=== PATIENT | male | born 1940 | race Caucasian/White ===

== ENCOUNTER 2020-06-24 18:34 | Emergency (ER) | payer OTHER ==
--- OUTSIDE RECORDS SUMMARY | 2020-06-24 18:37 | XMS REPORT | Clinical Summary ---
:1940 Author Organization [facility] Address [address] [place] [address] Care Team Providers Name Role Phone Asked, Pcp Primary Care Provider Unavailable Allergies No Known Allergies Medications Medication Sig Dispensed Refills Start Date End Date Status lisinopril Take 20 mg by 0 Activ e (PRINIVIL,ZESTRIL) 20 mg mouth daily. tablet levothyroxine Take 100 mcg by 0 Active (SYNTHROID, LEVOXYL) 100 mouth daily. mcg tablet metoprolol tartrate Take 37.5 mg by 0 Active (LOPRESSOR) 25 mg tablet mouth 3 (three) times a day. rosuvastatin (CRESTOR) Take 20 mg by 0 Active 20 MG tablet mouth nightly. aspirin (ECOTRIN) 325 MG Take 325 mg by 0 Active enteric coated tablet mouth daily. Active Problems Not on file Family History Medical History Relation Name Comments Heart disease Mother Relation Name Status Comments Mother Social History Tobacco Use Types Packs/Day Years Used Date Former Smoker Quit: 2007 Smokeless Tobacco: Never Used Alcohol Use Drinks/Week oz/Week Comments No Alcohol Habits Answer Date Recorded How often do you have a drink containing alcohol? Never 12/28/2018 How many drinks containing alcohol do you have on a typical Not asked day when you are drinking? How often do you have six or more drinks on one occasion? No t asked Sex Assigned at Date Recorded Not on file Job Start Date Occupation Industry Not on file Not on file Not on file Travel History Travel Start Travel End No recent travel history available. 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 Device Shelf Model / Identifier Expiration Serial / Date Lot Envlp Impl Crdvrtr Dfb Antbctrl Fully Resorb Lg Aigiss rx R - [id number] Cardiovascular N/A: [employer] [id number] / Implanted: 12/30/2018 at [facility] (Quantity not on file) Implants N/A / Transvenous Icd Moment[employer] [place]r - [id number] Defibrillator ICD N/A: [place] D120 / Implanted: Qty: 1 on 12/30/2018 by Theresa Richards Jr., MD at [facility] Devices N/A SCIENTIFIC- CRM / Results Not on fileafter 06/24/2019 Insurance Payer Benefit Plan / Subscriber ID Effective Dates Phone Addre ss Type Group MEDICARE MEDICARE PART A xxxxxxxxxxx 2002-Present [facility] [place] Medicare AND B Advance Directives For more information, please contact: [phone] Type Date 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
[2020-06-24] MEDS ORDERED: NA CHLORIDE 0.9% 500 ML ONE (20:18)
[2020-06-24 20:28] LABS: Absolute Lymphocytes (CBC) 0.7 K/uL (0.7-4.9); Basophils % 1.3 % (0-1.3); Lymphocytes % 10.1 % (15.3-44.8); MPV 8.8 fL (7.6-11.3); RBC Red Blood Cell Count 4.07 M/uL (4.33-5.43)
[2020-06-24 20:32] LABS: Protime INR 1.09
[2020-06-24 20:58] LABS: Urine Blood 1+ (NEG); Urine Glucose NEGATIVE (NEG); Urine Protein 1+ (NEG)
[2020-06-24 21:01] LABS: Barbiturates NEGATIVE (NEGATIVE); Benzodiazepines NEGATIVE (NEGATIVE); Cocaine NEGATIVE (NEGATIVE); METHAMPHETAM NEGATIVE (NEGATIVE); Methadone NEGATIVE (NEGATIVE); Opiates NEGATIVE (NEGATIVE); Phencyclidine NEGATIVE (NEGATIVE); THC Cannibis NEGATIVE (NEGATIVE)
[2020-06-24 21:06] LABS: ALT/SGPT 38 U/L (12-78); AST/SGOT 38 U/L (15-37); Albumin 3.6 g/dL (3.4-5.0); Alkaline Phosphatase 73 U/L (45-117); BUN Blood Urea Nitrogen 22 mg/dL (7-18); Bicarbonate 20 mmol/L (21-32); Bilirubin Direct 0.2 mg/dL (0-0.2); Bilirubin Total 0.7 mg/dL (0.2-1.0); Glucose Level 100 mg/dL (74-106); Potassium 4.4 mmol/L (3.5-5.1); Protein, Total 7.5 g/dL (6.4-8.2); Sodium Level 140 mmol/L (136-145); Thyroid Stimulating Hormone 0.865 uIU/mL (0.360-3.740); Troponin (Emerg Dept Use Only) 0.02 ng/mL (0.0-0.045)
[2020-06-24 21:25] LABS: Urine Bacteria 20-50 /HPF (NONE SEEN); Urine Culture Reflex Order REFLEXED; Urine Mucus 1+ /HPF (NONE SEEN)
[2020-06-24] MEDS ORDERED: CEFTRIAXONE/SWI 1gm 1 GM/10 ML SYR ONE (21:33)
--- NOTE | 2020-06-24 21:46 | ER ---
Nurse's Notes [facility] Name: Dallin Vargas Age: 80 yrs Sex: Male : 1940 Arrival Date: 06/24/2020 Time: 18:37 Bed 14 Private MD: Cliff Ferreira S Diagnosis: Urinary tract infection, site not specified;Dehydration Presentation: 06/24 18:50 Chief complaint: Patient states: "March 07 I lost my and April 06 I lost my only aa5 brother and since then I've been alone and I feel like I am not handling things very well". Pt states "today I was just pacing and felt alone, and I also only slept a little last night so that doesn't help so my son decided to bring me here". 18:50 Coronavirus screen: Client denies travel out of the [place] in the last 14 days. At this aa5 time, the client does not indicate any symptoms associated with coronavirus-19. Ebola Screen: Patient negative for fever greater than or equal to 101.5 degrees Fahrenheit, and additional compatible Ebola Virus Disease symptoms. Initial Sepsis Screen: Does the patient meet any 2 criteria? No. Patient's initial sepsis screen is negative. Does the patient have a suspected source of infection? No. Patient's initial sepsis screen is negative. Risk Assessment: Do you want to hurt yourself or someone else? Patient reports no desire to harm self or others. Onset of symptoms was June 24, 2020. 18:50 Acuity: FRANCISCO 3 aa5 18:50 Method Of Arrival: Ambulatory aa5 Historical: - Allergies: 18:50 No Known Allergies; aa5 - Home Meds: 18:50 levothyroxine 100 mcg tab once daily [Active]; alprazolam 0.25 mg oral tab at bedtime aa5 as needed [Active]; lisinopril 40 mg Oral tab 1 tab once daily [Active]; metoprolol tartrate 25mg take 1 1/2 tabs three times a day Oral tab [Active]; rosuvastatin 20 mg oral tab once daily [Active]; Aspirin Oral [Active]; - PMHx: 18:50 Hypertension; Thyroid problem; aa5 - PSHx: 18:50 Pacemaker/defibrillator; aa5 - Immunization history:: Adult Immunizations unknown. - Social history:: Smoking status: Patient denies any tobacco usage or history of. Screenin:44 Abuse screen: Denies threats or abuse. Nutritional screening: No deficits noted. ll2 Tuberculosis screening: No symptoms or risk factors identified. Fall Risk IV access (20 points). Gait- Weak (10 pts.). Total Jose Fall Scale indicates Low Risk Score (25-44 pts). Fall prevention measures have been instituted. Side Rails Up X 2 Placed close to Nursing Station. Assessment: 19:28 General: Appears in no apparent distress. Behavior is calm, cooperative, appropriate ll2 for age. General: Reports he recently lost his less than three years ago, he has no desire to visit friends or family any longer and feels somewhat anxious about being alone in his home. Pt appears to be in no distress at this time, and does not have any thoughts or ideas to harm himself. Pain: Denies pain. Neuro: Level of Consciousness is awake, alert, obeys commands, Oriented to person, place, time, situation. Cardiovascular: Capillary refill < 3 seconds Patient's skin is warm and dry. Respiratory: Airway is patent. GI: No signs and/or symptoms were reported involving the gastrointestinal system. : No signs and/or symptoms were reported regarding the genitourinary system. EENT: No signs and/or symptoms were reported regarding the EENT system. Derm: Skin is intact, is healthy with good turgor, Skin is dry, Skin is pink, warm \\T\\ dry. Skin temperature is warm. Musculoskeletal: Circulation, motion, and sensation intact. Range of motion: intact in all extremities. 20:45 Reassessment: Patient appears in no apparent distress at this time. Patient and/or ll2 family updated on plan of care and expected duration. Pain level reassessed. Patient is alert, oriented x 3, equal unlabored respirations, skin warm/dry/pink. pt is relaxed and seems at ease. laying comfortably in bed, call light within reach. Psych: 21:10 Subjective: Patient's mood is sad, Delusions are denied, Hallucinations are denied ll2 Having thoughts of denies SI and HI. Objective: Patient is cooperative, Speech is normal, Affect is appropriate. Interventions: Urine collected and sent for urine drug test. Patient reassessed during use of restraints. Patient is physically safe. Patient assessed for signs of distress. Patient remains reasonably comfortable at this time. Suicide Risk Assessment: Sad Person Scale: Sex of patient: Male: Score 1 point. Age of patient: Score 1 point if patient is over 65. Depression: Score 1 point if signs of depression are present. Previous Attempt: Score 0 point if patient has not previously attempted suicide. Substance Abuse: Score 0 point if patient does not abuse alcohol or drugs. Rational Thinking: Score 0 point if patient has rational thinking. Social Support: Score 0 if social support is present/available. Organized Plan: Score 0 if patient did not have an organized plan in place. Relationship: Score 1 point if patient is , , , or for a single male Chronic Sickness: Score 0 point if patient does not have a chronic illness, debilitating, or severe disorder. Safety Checks: denies SI and HI. Pt denies substance abuse. Commitment: pt recently lost spouse, denies si, and hi. Vital Signs: 18:50 BP 170 / 102; Pulse 85; Resp 18 S; Temp 97.6(O); Pulse Ox 95% on R/A; Pain 0/10; aa5 19:31 BP 151 / 94; Pulse 79; Resp 13; Pulse Ox 96% on R/A; Pain 0/10; ll2 20:31 BP 176 / 74 Supine; Pulse 74; ll2 20:31 BP 172 / 97 Sitting; Pulse 80; ll2 20:31 BP 180 / 97 Standing; Pulse 85; ll2 21:09 BP 172 / 91; Pulse 77; Resp 19; Pulse Ox 94% ; ll2 22:05 BP 168 / 80; Pulse 75; Resp 23; Pulse Ox 94% on R/A; Pain 0/10; ll2 ED Course: 18:37 Patient arrived in ED. ag5 18:37 Cliff Ferreira MD is Private Physician. ag5 18:50 Arm band placed on. aa5 19:04 Triage completed. aa5 19:20 Patient has correct armband on for positive identification. Placed in gown. Bed in low ll2 position. Call light in reach. Side rails up X 1. Warm blanket given. 19:24 Jeff Bowles NP is PHCP. pm1 19:24 Nathanael Betancur MD is Attending Physician. pm1 19:27 [place], Flor, RN is Primary Nurse. ll2 20:30 Troponin (emerg Dept Use Only) Sent. ll2 20:30 TSH Sent. ll2 20:30 Acetaminophen Sent. ll2 20:30 Basic Metabolic Panel Sent. ll2 20:30 CBC with Diff Sent. ll2 20:30 ETOH Level Sent. ll2 20:30 Salicylate Sent. ll2 20:30 Ptt, Activated Sent. ll2 20:30 Hepatic Function Sent. ll2 20:30 PT-INR Sent. ll2 20:31 Inserted saline lock: 20 gauge in right forearm, using aseptic technique. Blood ll2 collected. 22:12 No provider procedures requiring assistance completed. IV discontinued, intact, ll2 bleeding controlled, No redness/swelling at site. Pressure dressing applied. Administered Medications: 20:43 Drug: NS 0.9% 500 ml Route: IV; Rate: bolus; Site: right forearm; ll2 22:20 Follow up: IV Status: Completed infusion ll2 21:29 Drug: Rocephin 1 grams Route: IV; Rate: per protocol; Site: right forearm; ll2 21:29 Follow up: Response: No adverse reaction ll2 Outcome: 21:45 Discharge ordered by MD. pm1 22:12 Discharged to home ambulatory. ll2 22:12 Condition: stable 22:12 Discharge instructions given to patient, Instructed on discharge instructions, follow up and referral plans. medication usage, Demonstrated understanding of instructions, follow-up care, medications, Prescriptions given X 1. 22:13 Patient left the ED. ll2 Addendum: 06/30/2020 08:31 Addendum: Culture Results: Positive urine culture. Phone call Attempt #1 Spoke to pt a a5 over the phone, pt reports marked relieve of urinary symptoms taking Augmentin, pt states "the burning with urination is almost gone now". Augmentin is sensitive intermediate and pt was instructed to follow up with PCP. Pt reports he has appointment with Dr. Ferreira 07/09/20, also reports he will follow-up at a clinic because he has no PCP at this time. Signatures: Shanice Orellana, RN RN aa5 Jeff Bowles NP E COMMERCE MANAGER pm1 Franklin Allison ag5 Flor Nelson, FRANSISCO RN ll2
--- NOTE | 2020-06-24 21:46 | EDPHYS ---
Physician Documentation [facility] Name: Dallin Vargas Age: 80 yrs Sex: Male : 1940 Arrival Date: 06/24/2020 Time: 18:37 Bed 14 Private MD: Cliff Ferreira S ED Physician Nathanael Betancur HPI: 06/24 19:50 This 80 yrs old Male presents to ER via Ambulatory with complaints of pm1 Depression, Doesn't Feel Right. 19:50 The patient presents to the emergency department with depression, over a , pm1 and son's . a few months ago. Onset: The symptoms/episode began/occurred yesterday. Associated signs and symptoms: Pertinent positives; Dizziness, Pertinent negatives: chest pain, shortness of breath. Severity of symptoms: in the emergency department the symptoms have improved. The patient has not experienced similar symptoms in the past. Patient reports poor hydration the past few days and he was mowing the lawn this AM. Historical: - Allergies: 18:50 No Known Allergies; aa5 - Home Meds: 18:50 levothyroxine 100 mcg tab once daily [Active]; alprazolam 0.25 mg oral tab at bedtime aa5 as needed [Active]; lisinopril 40 mg Oral tab 1 tab once daily [Active]; metoprolol tartrate 25mg take 1 1/2 tabs three times a day Oral tab [Active]; rosuvastatin 20 mg oral tab once daily [Active]; Aspirin Oral [Active]; - PMHx: 18:50 Hypertension; Thyroid problem; aa5 - PSHx: 18:50 Pacemaker/defibrillator; aa5 - Immunization history:: Adult Immunizations unknown. - Social history:: Smoking status: Patient denies any tobacco usage or history of. ROS: 19:50 Constitutional: Negative for fever, chills, and weight loss, Eyes: Negative for injury, pm1 pain, redness, and discharge, ENT: Negative for injury, pain, and discharge, Neck: Negative for injury, pain, and swelling, Cardiovascular: Negative for chest pain, palpitations, and edema, Respiratory: Negative for shortness of breath, cough, wheezing, and pleuritic chest pain, Abdomen/GI: Negative for abdominal pain, nausea, vomiting, diarrhea, and constipation, Back: Negative for injury and pain. 19:50 MS/Extremity: Negative for injury and deformity, Skin: Negative for injury, rash, and discoloration. 19:50 : Positive for burning with urination, mild, Negative for flank pain. 19:50 Neuro: Positive for dizziness, Negative for headache, numbness, tingling, weakness. Exam: 19:50 Constitutional: This is a well developed, well nourished patient who is awake, alert, pm1 and in no acute distress. Head/Face: Normocephalic, atraumatic. Neck: Trachea midline, no thyromegaly or masses palpated, and no cervical lymphadenopathy. Supple, full range of motion without nuchal rigidity, or vertebral point tenderness. No Meningismus. Chest/axilla: Normal chest wall appearance and motion. Nontender with no deformity. No lesions are appreciated. Cardiovascular: Regular rate and rhythm with a normal S1 and S2. No gallops, murmurs, or rubs. Normal PMI, no JVD. No pulse deficits. Respiratory: Lungs have equal breath sounds bilaterally, clear to auscultation and percussion. No rales, rhonchi or wheezes noted. No increased work of breathing, no retractions or nasal flaring. Abdomen/GI: Soft, non-tender, with normal bowel sounds. No distension or tympany. No guarding or rebound. No evidence of tenderness throughout. Back: No spinal tenderness. No costovertebral tenderness. Full range of motion. Skin: Warm, dry with normal turgor. Normal color with no rashes, no lesions, and no evidence of cellulitis. MS/ Extremity: Pulses equal, no cyanosis. Neurovascular intact. Full, normal range of motion. 19:50 Neuro: Exam negative for acute changes, focal neuro deficits, Orientation: is normal, Mentation: is normal, Motor: is normal, moves all fours, Sensation: is normal, no obvious gross deficits. Vital Signs: 18:50 BP 170 / 102; Pulse 85; Resp 18 S; Temp 97.6(O); Pulse Ox 95% on R/A; Pain 0/10; aa5 19:31 BP 151 / 94; Pulse 79; Resp 13; Pulse Ox 96% on R/A; Pain 0/10; ll2 20:31 BP 176 / 74 Supine; Pulse 74; ll2 20:31 BP 172 / 97 Sitting; Pulse 80; ll2 20:31 BP 180 / 97 Standing; Pulse 85; ll2 21:09 BP 172 / 91; Pulse 77; Resp 19; Pulse Ox 94% ; ll2 22:05 BP 168 / 80; Pulse 75; Resp 23; Pulse Ox 94% on R/A; Pain 0/10; ll2 MDM: 19:25 Patient medically screened. pm1 21:43 Data reviewed: vital signs. Data interpreted: Pulse oximetry: on room air is 95 %. pm1 Interpretation: normal. Counseling: I had a detailed discussion with the patient and/or guardian regarding: the historical points, exam findings, and any diagnostic results supporting the discharge/admit diagnosis, lab results, radiology results, the need for outpatient follow up, to return to the emergency department if symptoms worsen or persist or if there are any questions or concerns that arise at home. 06/24 19:50 Order name: Acetaminophen; Complete Time: 21:10 pm1 06/24 19:50 Order name: Basic Metabolic Panel; Complete Time: 21:10 pm1 06/24 19:50 Order name: CBC with Diff; Complete Time: 20:42 pm1 06/24 19:50 Order name: ETOH Level; Complete Time: 20:51 pm1 06/24 19:50 Order name: Hepatic Function; Complete Time: 21:10 pm1 06/24 19:50 Order name: PT-INR; Complete Time: 20:42 pm1 06/24 19:50 Order name: Ptt, Activated; Complete Time: 20:42 pm1 06/24 19:50 Order name: Salicylate; Complete Time: 20:51 pm1 06/24 19:50 Order name: Urine Drug Screen; Complete Time: 21:04 pm1 06/24 19:50 Order name: TSH; Complete Time: 21:10 pm1 06/24 19:50 Order name: Troponin (emerg Dept Use Only); Complete Time: 21:10 pm06/24 20:44 Order name: Urine Dipstick--Ancillary (enter results); Complete Time: 21:04 tt3 06/24 21:04 Order name: Urine Microscopic Only; Complete Time: 21:26 pm1 06/24 21:26 Order name: Urine Culture EDMS 06/24 19:50 Order name: EKG; Complete Time: 19:51 pm1 06/24 19:50 Order name: EKG - Nurse/Tech; Complete Time: 20:21 pm1 06/24 19:50 Order name: IV Saline Lock; Complete Time: 20:21 pm1 06/24 19:50 Order name: Labs collected and sent; Complete Time: 20:21 pm1 06/24 19:50 Order name: Urine Dipstick-Ancillary (obtain specimen); Complete Time: 21:09 pm06/24 19:50 Order name: Orthostatic Blood Pressure; Complete Time: 20:30 pm1 Administered Medications: 20:43 Drug: NS 0.9% 500 ml Route: IV; Rate: bolus; Site: right forearm; ll2 22:20 Follow up: IV Status: Completed infusion ll2 21:29 Drug: Rocephin 1 grams Route: IV; Rate: per protocol; Site: right forearm; ll2 21:29 Follow up: Response: No adverse reaction ll2 Disposition: 22:41 Co-signature as Attending Physician, Nathanael Betancur MD. pkerika Disposition: 06/24/20 21:45 Discharged to Home. Impression: Urinary tract infection, site not specified, Dehydration. - Condition is Stable. - Discharge Instructions: Dehydration, Elderly, Urinary Tract Infection, Adult, Rehydration, Elderly. - Prescriptions for Augmentin 875- 125 mg Oral Tablet - take 1 tablet by ORAL route every 12 hours for 10 days; 20 tablet. - Medication Reconciliation Form, Thank You Letter, Antibiotic Education, Prescription Opioid Use form. - Follow up: Emergency Department; When: As needed; Reason: Worsening of condition. Follow up: Private Physician; When: 2 - 3 days; Reason: Recheck today's complaints, Continuance of care, Re-evaluation by your physician. - Problem is new. - Symptoms have improved. Signatures: Dispatcher [employer] EDMS Nathanael Betancur MD MD pkl Shanice Orellana, RN RN aa5 Jeff Bowles NP WIRE STOCKKEEPER pm1 Flor Nelson RN RN ll2 Corrections: (The following items were deleted from the chart) 22:13 21:45 06/24/2020 21:45 Discharged to Home. Impression: Urinary tract infection, site ll2 not specified; Dehydration. Condition is Stable. Forms are Medication Reconciliation Form, Thank You Letter, Antibiotic Education, Prescription Opioid Use. Follow up: Emergency Department; When: As needed; Reason: Worsening of condition. Follow up: Private Physician; When: 2 - 3 days; Reason: Recheck today's complaints, Continuance of care, Re-evaluation by your physician. Problem is new. Symptoms have improved. pm1
--- NOTE | 2020-06-25 07:01 | EKG ---
Test Date: 2020-06-24 Test Time: 20:15:31 Private Client Advisor: OSCAR MEASUREMENT RESULTS: Intervals: Rate: 78 KS: 298 QRSD: 162 QT: 432 QTc: 492 Street: P: 43 KS: 298 QRS: -40 T: 90 INTERPRETIVE STATEMENTS: Sinus rhythm with 1st degree AV block Left axis deviation Left bundle branch block Abnormal ECG No previous ECG available for comparison Electronically Signed On 06-25-20 07:00:06 CDT by Cliff Ferreira
[2020-06-27 16:06] VITALS: O2SAT 94
[2020-06-27 16:07] VITALS: BP 168/80
== END 2020-06-24 22:13 | disposition home or self-care (01) ==
LOC: ER 18:34
DX: N39.0 Urinary tract infection, site not specified (principal); E86.0 Dehydration; I10 Essential (primary) hypertension; E07.9 Disorder of thyroid, unspecified; Z79.82 Long term (current) use of aspirin; Z95.810 Presence of automatic (implantable) cardiac defibrillator
CPT/HCPCS: 96361; 93005; 87088; 85025; 87086; 80048; 36415; 80320; 80329 ×2; 85610; 80076; 80307 ×8; 85730; 84443; 87077; 87186; 84484; 96374; 99284; J0696; J7040; 81003; 81015

== ENCOUNTER 2024-09-25 12:19 | Inpatient (IN) | payer OTHER ==
[2024-09-25 13:16] LABS: Absolute Eosinophils 0.2 K/uL (0-0.5); Absolute Lymphocytes (CBC) 0.5 K/uL (0.7-4.9); Absolute Monocytes 1.1 K/uL (0.1-1.3); Absolute Neutrophil 5.9 K/uL (1.8-8.0); Basophils % 0.2 % (0-1.3); Eosinophils % 2.9 % (0-4.4); Hematocrit 39.5 % (39.6-49.0); Hemoglobin 12.9 g/dL (13.6-17.9); Lymphocytes % 6.1 % (15.3-44.8); MCH 32.8 pg (27.0-35.0); MCHC 32.6 g/dL (32.0-36.0); MCV 100.5 fL (80-100); MPV 9.4 fL (7.6-11.3); Monocytes % 14.4 % (3.3-12.3); Neutrophils % 76.4 % (41.7-73.7); Nucleated Red Blood Cells % 0.1 % (0-0); Platelets 109 thou/uL (152-406); RBC Red Blood Cell Count 3.93 M/uL (4.33-5.43); Red Cell Distribution Width 15.8 % (12.1-15.2)
--- NOTE | 2024-09-25 13:31 | RAD REPORT ---
EXAM: CT brain without contrast HISTORY: falls;Confused COMPARISON: 08/05/2022 TECHNIQUE: Multiple contiguous axial images were obtained and a CT of the brain without contrast. Sag ittal and coronal reformats were performed. FINDINGS: No evidence of hydrocephalus, intracranial hemorrhage, or extra-axial fluid collection. The brain is normal in morphology. The calvarium is intact. The visualized paranasal sinuses and mastoid air cells are essentially clear . IMPRESSION: No evidence of acute intracranial abnormality. EXAM: CT of the cervical spine without contrast HISTORY: falls;Confused COMPARISON: None TECHNIQUE: Multiple contiguous axial images were obtained in a CT of the cervical spine without contr ast. Sagittal and coronal reformats were performed. FINDINGS: The vertebral bodies demonstrate normal height and preserved lordosis. No evidence of acute fracture or subluxation.. Moderate multilevel degenerative changes, contributing to moderate degrees of neural foraminal narrowing bilaterally at C5-6. 3 mm retrolisthesis of C3-4 and C5 over C6 . No prevertebral soft tissue swelling is seen. The posterior facets are well aligned. Normal alignment of the skull base with the cervical spine is seen. The lung apices are unremarkable. IMPRESSION: No evidence of acute osseous abnormality of the cervical spine. Multilevel degenerative changes as ab ove.
[2024-09-25] MEDS ORDERED: NA CHLORIDE 0.9% 1,000 ML ONE (13:36)
--- NOTE | 2024-09-25 13:43 | RAD REPORT ---
EXAM: CT CHEST, ABDOMEN AND PELVIS WITHOUT CONTRAST CLINICAL INDICATION: Male, 84 years old. HS MAIN repeated falls, left sided pain Bed Name: 24 TECHNIQUE: CT chest, abdomen and pelvis was performed, without IV contrast, as per department protoco l. Axial, sagittal and coronal reconstructions were obtained. One or more of the following dose reduction techniques were used: Automated exposure control, adjustment of the mA and/or kV according to the patient size, and/or iterative reconstruction. Unless otherwise specified, incidental findings do not require dedicated imaging follow-up. COMPARISON: No prior exam. FINDINGS: The lack of intravenous contrast limits the sensitivity of this exam for evaluation of solid visceral organs, vascular structures, and retroperitoneum. Chest: LOWER NECK/CHEST WALL: Visualized thyroid gland and soft tissues are normal. LUNGS AND AIRWAYS: Airways are clear. Advanced centrilobular edematous changes, apical predominant. S ubsegmental interstitial prominence and atelectasis along the dependent right lower lobe. No suspicious Nodules. PLEURA: Small bilateral pleural effusions larger on the right. No pneumothorax. Hemidiaphragms are no rmally positioned. MEDIASTINUM AND LYMPH NODES: No mediastinal mass or fluid collection. Normal size mediastinal, hilar, and axillary lymph nodes. THORACIC AORTA: Normal caliber and configuration. PULMONARY ARTERIES: Normal caliber. HEART: Normal size. Sequelae of median sternotomy and probable CABG No pericardial effusion. Left cristel st wall pacer/AICD place.. Abdomen/Pelvis LIVER: Normal in size and contour. No focal lesion. GALLBLADDER/BILE DUCTS: No biliary ductal dilatation. PANCREAS: No mass, ductal dilation, or lexie-pancreatic fluid. SPLEEN: Normal size. No focal lesion. ADRENALS: Normal; no mass. KIDNEYS AND URETERS: Normal size and contour. No hydronephrosis. Exophytic posterior left renal inter polar 1.7 cm fluid density cyst. Punctate right superior pole probable calculus measuring 2-3 mm. GASTROINTESTINAL TRACT: Stomach is non-dilated. Small bowel has normal course and caliber. No colonic wall thickening or pericolonic inflammatory changes. PERITONEUM: No free fluid. LYMPH NODES: No lymphadenopathy. ABDOMINAL AORTA AND OTHER VESSELS: Normal caliber aorta and IVC. URINARY BLADDER: Normal contour. REPRODUCTIVE ORGANS: No pathologic process. MUSCULOSKELETAL: Anterior wedge compression deformities involving T5, T6, T10, and T11 vertebral bodi es, favored to be chronic. Diffuse osteopenia. Healing/healed right fifth-seventh rib fractures. 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 ADDITIONAL FINDINGS: Small umbilical hernia containing fat. Moderate prostatomegaly. IMPRESSION: Small bilateral pleural effusions and extensive changes of COPD, with dependent right more than left lower lobe airspace opacities, favored to relate to atelectasis. Nonobstructing right renal superior pole collecting 3 mm calculus. Multilevel thoracic vertebral body wedge compression deformities, and healing or healed right fifth-s eventh rib fractures, favored to be chronic. Other incidental findings as above.
[2024-09-25 13:46] LABS: Blood Morphology Comment NOT SEEN (NOT SEEN); Platelet Estimate DECR; White Blood Cell Scan OK (OK)
[2024-09-25 13:53] LABS: PT Prothrombin Time 13.3 SECONDS (9.4-12.5); PTT, Activated Partial Thromb 29.5 SECONDS (24.3-36.9); Protime INR 1.19
[2024-09-25 14:04] LABS: Specific Gravity 1.018 (1.005-1.030); Sqamous Epithelial <5 /HPF (None Seen); Urine Bacteria <20 /HPF (<20); Urine Bilirubin NEGATIVE (Negative); Urine Blood 3+ (OVER) (Negative); Urine Clarity Extremely Turbid (Clear); Urine Color Yellow (Yellow); Urine Culture Reflex Order REFLEXED; Urine Glucose NEGATIVE (Negative); Urine Ketones NEGATIVE (Negative); Urine Microscopic Reflex YN ORDER UMIC; Urine Mucus Slight /HPF (None Seen); Urine Nitrite NEGATIVE (Negative); Urine Protein 1+ (Negative); Urine RBC >50 /HPF (None Seen); Urine Urobilinogen 1+ (Normal)
[2024-09-25 14:19] LABS: Albumin 2.8 g/dL (3.4-5.0); Albumin/Globulin Ratio 0.8 (1.1-1.8); Anion Gap 9.7 mEq/L (5.0-15.0); Bilirubin Direct 0.4 mg/dL (0-0.2); Bilirubin Indirect, Calculated 1.3 mg/dL (0.2-0.8); Bilirubin Total 1.7 mg/dL (0.2-1.0); Globulin 3.7 g/dL (2.3-3.5); Magnesium 2.5 mg/dL (1.6-2.4); Potassium 3.7 mEq/L (3.5-5.1); Protein, Total 6.5 g/dL (6.4-8.2)
[2024-09-25 14:25] LABS: Troponin High Sensitivity 680.8 pg/mL (<58.9)
--- NOTE | 2024-09-25 14:33 | EDPHYS ---
Physician Documentation [facility] Name: Dallin Vargas Age: 84 yrs Sex: Male : 1940 Arrival Date: 09/25/2024 Time: 12:19 Bed 24 Private MD: ED Physician Margarito Morris HPI: 09/25 14:05 This 84 yrs old Male presents to ER via EMS with complaints of Fall Injury. sb4 14:05 patient reports multiple falls over the past few days. he reports pain on the left side sb4 of his body. family noticed blood on his underwear this morning. EMS administered fentanyl en route, patient has no complaints at this time. Historical: - Allergies: 12:31 No Known Allergies; me1 - PMHx: 12:31 Hypertension; Thyroid problem; me1 - Immunization history:: Adult Immunizations up to date. - Infectious Disease History:: Denies. - Social history:: Smoking status: Patient/guardian denies using tobacco, but has a distant history of tobacco abuse. ROS: 14:05 Constitutional: Negative for fever, chills, and weight loss, sb4 14:05 All other systems are negative, Exam: 14:08 Constitutional: This is a well developed, well nourished patient who is awake, alert, sb4 and in no acute distress. Head/Face: Normocephalic, atraumatic. Eyes: Extra-ocular motions intact. Periorbital areas with no swelling, redness, or edema. ENT: Mucous membranes moist. Respiratory: No increased work of breathing, no retractions or nasal flaring. Abdomen/GI: Soft, non-tender, no distension. Skin: Warm, dry with normal turgor. Normal color with no rashes, no lesions, and no evidence of cellulitis. 14:08 Cardiovascular: Rate: tachycardic, Rhythm: regular, Vital Signs: 12:30 BP 99 / 66; Pulse 109; Resp 20; Temp 97.4; Pulse Ox 94% on 2 lpm NC; Weight 63.5 kg; me1 Height 5 ft. 10 in. ; Pain 4/10; 13:00 BP 100 / 72; Pulse 119; Resp 17; Pulse Ox 96% on 4 lpm NC; me1 14:00 BP 108 / 73; Pulse 114; Resp 21; Pulse Ox 96% on 4 lpm NC; me1 15:00 BP 104 / 78; Pulse 113; Resp 20; Pulse Ox 100% on 4 lpm NC; me1 16:00 BP 96 / 68; Pulse 116; Resp 19; Pulse Ox 94% on 4 lpm NC; me1 17:00 BP 110 / 71; Pulse 116; Resp 18; Temp 98.2; Pulse Ox 94% on 4 lpm NC; me1 18:00 BP 96 / 72; Pulse 104; Resp 16; Pulse Ox 95% on 4 lpm NC; me1 18:45 BP 94 / 59; Pulse 105; Resp 18; Pulse Ox 94% on 4 lpm NC; me1 12:30 Body Mass Index 20.09 (63.50 kg, 177.8 cm) me1 12:30 Pain Scale: Adult me1 MDM: 12:29 Medical Screening Exam initiated sb4 14:32 Data reviewed: vital signs, nurses notes, EMS record, lab test result(s), EKG, sb4 radiologic studies, and as a result, I will admit patient. Consideration of Admission/Observation Patient was admitted/placed on observation. Care significantly affected by the following chronic conditions: Hypertension. Counseling: I had a detailed discussion with the patient and/or guardian regarding the historical points, exam findings, and any diagnostic results supporting the discharge/admit diagnosis, lab results, radiology results, the need for further work-up and treatment in the hospital. 14:56 Management of patient was discussed with the following: Aviculturist: Dr. Vega, does sb4 not want heparin at this time. wants troponin trended, baby aspirin, and IV hydration. 09/25 12:30 Order name: Basic Metabolic Panel; Complete Time: 14:26 sb4 09/25 12:30 Order name: CBC with Diff; Complete Time: 13:47 sb4 09/25 12:30 Order name: Hepatic Function; Complete Time: 14:26 sb4 09/25 12:30 Order name: Magnesium; Complete Time: 14:26 sb4 09/25 12:30 Order name: Protime (+inr); Complete Time: 13:54 sb4 09/25 12:30 Order name: Ptt, Activated; Complete Time: 13:54 sb4 09/25 12:30 Order name: Troponin High Sensitivity; Complete Time: 14:26 sb4 09/25 12:30 Order name: Urinalysis w/ reflexes; Complete Time: 14:07 sb4 09/25 13:46 Order name: CBC Smear Scan; Complete Time: 13:47 EDMS 09/25 14:08 Order name: Urine Culture EDMS 09/25 14:31 Order name: BNP; Complete Time: 15:19 sb4 09/25 14:39 Order name: CPK; Complete Time: 15:19 sb4 09/25 15:51 Order name: Urinalysis w/ reflexes EDMS 09/25 15:51 Order name: Basic Metabolic Panel EDMS 09/25 15:51 Order name: Basic Metabolic Panel EDMS 09/25 15:51 Order name: Basic Metabolic Panel EDMS 09/25 15:51 Order name: Basic Metabolic Panel EDMS 09/25 15:51 Order name: CBC with Automated Diff EDMS 09/25 15:51 Order name: CBC with Automated Diff EDMS 09/25 15:51 Order name: CBC with Automated Diff EDMS 09/25 15:51 Order name: CBC with Automated Diff EDMS 09/25 15:51 Order name: Lipid Profile EDMS 09/25 15:51 Order name: Lipid Profile EDMS 09/25 15:51 Order name: Magnesium EDMS 09/25 15:51 Order name: Magnesium EDMS 09/25 15:51 Order name: Magnesium EDMS 09/25 15:51 Order name: Magnesium EDMS 09/25 15:51 Order name: NT PRO-BNP EDMS 09/25 15:51 Order name: NT PRO-BNP EDMS 09/25 15:51 Order name: NT PRO-BNP EDMS 09/25 15:51 Order name: NT PRO-BNP EDMS 09/25 15:51 Order name: Troponin High Sensitivity EDMS 09/25 15:51 Order name: Troponin High Sensitivity EDMS 09/25 15:51 Order name: Troponin High Sensitivity EDMS 09/25 15:51 Order name: Troponin High Sensitivity EDMS 09/25 12:30 Order name: CT Head C Spine; Complete Time: 13:34 sb4 09/25 12:30 Order name: CT Chest Abdomen Pelvis W/O Contrast; Complete Time: 13:44 sb4 09/25 18:09 Order name: RAD; Complete Time: 18:20 EDMS 09/25 18:09 Order name: RAD; Complete Time: 18:20 EDMS 09/25 15:51 Order name: CONS Physician Consult EDMA 09/25 12:30 Order name: Cardiac monitoring; Complete Time: 13:12 sb4 09/25 12:30 Order name: EKG - Nurse/Tech; Complete Time: 13:12 sb4 09/25 12:30 Order name: IV Saline Lock; Complete Time: 13:12 sb4 09/25 12:30 Order name: Labs collected and sent; Complete Time: 13:12 sb4 09/25 12:30 Order name: NPO; Complete Time: 13:12 sb4 09/25 12:30 Order name: O2 Per Protocol; Complete Time: 13:12 sb4 09/25 12:30 Order name: O2 Sat Monitoring; Complete Time: 13:12 sb4 09/25 13:21 Order name: Labs - recollect needed: recollect green and blue top; Complete Time: 13:39 bd EC:58 Rate is 116 beats/min. Rhythm is irregular, Sinus tachycardia with Right bundle branch sb4 block. Left axis deviation noted. CT interval is normal at 192 msec. QRS interval is normal at 166 msec. QT interval is normal at 382 msec. Clinical impression: Sinus tachycardia. Interpreted by me. Reviewed by me. Administered Medications: 13:39 Drug: NS 0.9% IV 1000 ml IV at 1 bolus Per protocol; to be given as a bolus over 60 me1 minutes Route: IV; Rate: 1 bolus; Site: left antecubital; 16:30 Follow up: Response: No adverse reaction; IV Status: Completed infusion; IV Intake: me1 1000ml 14:39 CANCELLED (Physician Discretion): Heparin (UT-Bolus No thrombolytic) - [id number] sb4 units/kg IVP once; Max 5000 units 14:39 CANCELLED (Physician Discretion): Heparin (UT Drip) - ([id number] units, [id number] ml) sb4 12 units/kg/hr IV at calculated rate Per protocol; Max initial rate 1000 units/hr 14:39 CANCELLED (Physician Discretion): aspirinchewable tablet 324 mg PO once; 81 mg tablets sb4 x 4 15:15 Drug: Aspirin PO 81 mg PO once Route: PO; me1 16:11 Follow up: Response: No adverse reaction me1 Disposition Summary: 09/25/24 14:32 Hospitalization Ordered Notes: Hospitalization Status: Inpatient Admission sb4 Provider: Robbie Gar sb4 Location: Telemetry/MedSur (Inpatient) sb4 Condition: Fair sb4 Problem: new sb4 Symptoms: are unchanged sb4 Bed/Room Type: Standard sb4 Room Assignment: 412(09/25/24 17:03) bc6 Diagnosis - Subsequent non-ST elevation (NSTEMI) myocardial infarction sb4 - Repeated falls sb4 Forms: - Medication Reconciliation Form sb4 - SBAR form sb4 - Leadership Thank You Letter sb4 Addendum: 10/04/2024 10:11 I was immediately available for consultation during this patient's visit. I did not e c2 personally see the patient or discuss the patient with the MICHAEL. . Signatures: Dispatcher [employer] EDMS Mena Sewell Sophia, PA-C PA-C sb4 Kourtney Roman bc6 Sara Enrique RN RN me1 Margarito Morris MD MD ec2 Corrections: (The following items were deleted from the chart) 09/25 12:31 12:31 BASIC METABOLIC PANEL+C.LAB.BRZ ordered. EDMS EDMS 12:31 12:31 CBC+H.LAB.BRZ ordered. EDMS EDMS 12:31 12:31 HEPATIC FUNCTION+C.LAB.BRZ ordered. EDMS EDMS 12:31 12:31 MAGNESIUM+C.LAB.BRZ ordered. EDMS EDMS 12:31 12:31 PROTIME (+INR)+COAG.LAB.BRZ ordered. EDMS EDMS 12:31 12:31 PTT, ACTIVATED+COAG.LAB.BRZ ordered. EDMS EDMS 12:31 12:31 Troponin High Sensitivity+C.LAB.BRZ ordered. EDMS EDMS 12:31 12:31 Urinalysis+U.LAB.BRZ ordered. EDMS EDMS 12:31 12:31 Head C Spine MPR Wo Con+CT.RAD.BRZ ordered. EDMS EDMS 12:31 12:31 Chest Abdomen Pelvis Wo Con+CT.RAD.BRZ ordered. EDMS EDMS 14:39 14:37 Heparin (UT-Bolus No thrombolytic) - HEParin IVP 60 units/kg IVP once; Max 5000 sb4 units ordered. sb4 14:39 14:37 Heparin (UT Drip) 12 units/kg/hr - ([place] [address] units, D5W IV 500 ml) IV at sb4 calculated rate Per protocol; Max initial rate 1000 units/hr ordered. sb4 39 14:37 Aspirin PO Chewable Tablet 324 mg PO once; 81 mg tablets x 4 ordered. sb4 sb4 17:00 14:32 sb4 bc6 17:03 17:00 212 bc6 bc6
--- NOTE | 2024-09-25 14:33 | ER ---
Nurse's Notes [facility] Name: Dallin Vargas Age: 84 yrs Sex: Male : 1940 Arrival Date: 09/25/2024 Time: 12:19 Bed 24 Private MD: Diagnosis: Subsequent non-ST elevation (NSTEMI) myocardial infarction;Repeated falls Presentation: 09/25 12:30 Chief complaint: EMS states: toned out for recent falls and generalized weakness. me1 Patient has fallen 3 or 4 times over the past few days, last fall was last night and patient has had some left hip pain since. Today family went to check on him and he was still in bed, had blood in his brief and his urine is tea colored this morning. 22g to left AC, fentanyl 50 mcg and zofran 4 mg administered. Coronavirus screen: Vaccine status: Patient reports receiving the 2nd dose of the covid vaccine. Ebola Screen: No symptoms or risks identified at this time. Initial Sepsis Screen: Does the patient meet any 2 criteria? No. Patient's initial sepsis screen is negative. Does the patient have a suspected source of infection? No. Patient's initial sepsis screen is negative. Risk Assessment: Do you want to hurt yourself or someone else?. Onset of symptoms is unknown. 12:30 Method Of Arrival: EMS: [facility] 12:30 Acuity: FRANCISCO 3 ma1 Triage Assessment: 12:31 General: Appears in no apparent distress. well groomed, well developed, well nourished, me1 Behavior is calm, cooperative, appropriate for age, Reports. Pain: Complains of pain in left hip Pain does not radiate. Pain currently is 4 out of 10 on a pain scale. Quality of pain is described as aching, Pain began suddenly, 1 day ago. Is continuous. EENT: No signs and/or symptoms were reported regarding the EENT system. Neuro: Level of Consciousness is awake, alert, obeys commands, Oriented to person, place, time, situation, Appropriate for age. Cardiovascular: Patient's skin is warm and dry. Respiratory: Airway is patent Respiratory effort is even, unlabored, Respiratory pattern is regular, symmetrical. GI: No signs and/or symptoms were reported involving the gastrointestinal system. : Reports blood tinged, tea colored urine. Derm: Skin is intact, Skin is pink, warm \T\ dry. Musculoskeletal: Reports pain in left hip. Injury Description: multiple ground level falls over the past few days. Historical: - Allergies: 12:31 No Known Allergies; me1 - PMHx: 12:31 Hypertension; Thyroid problem; me1 - Immunization history:: Adult Immunizations up to date. - Infectious Disease History:: Denies. - Social history:: Smoking status: Patient/guardian denies using tobacco, but has a distant history of tobacco abuse. Screenin:36 [facility] ED Fall Risk Assessment (Adult) History of falling in the last 3 months, ma1 including since admission Yes- fall prone (multiple falls) (3 pts) Confusion or Disorientation No (0 pts) Intoxicated or Sedated No (0 pts) Impaired Gait Yes (1 pt) Mobility Assist Device Used Yes (1 pt) Altered Elimination No (0 pt) Score/Fall Risk Level 3 or more points = High Risk Maintained a safe environment, Hourly rounding (assess needs \T\ fall precautionary measures) done, Used ambulatory aids as needed (educated on \T\ assisted with). Abuse screen: Denies threats or abuse. Nutritional screening: No deficits noted. Tuberculosis screening: No symptoms or risk factors identified. Assessment: 12:36 Reassessment: See triage assessment. ma1 Vital Signs: 12:30 BP 99 / 66; Pulse 109; Resp 20; Temp 97.4; Pulse Ox 94% on 2 lpm NC; Weight 63.5 kg; me1 Height 5 ft. 10 in. ; Pain 4/10; 13:00 BP 100 / 72; Pulse 119; Resp 17; Pulse Ox 96% on 4 lpm NC; me1 14:00 BP 108 / 73; Pulse 114; Resp 21; Pulse Ox 96% on 4 lpm NC; me1 15:00 BP 104 / 78; Pulse 113; Resp 20; Pulse Ox 100% on 4 lpm NC; me1 16:00 BP 96 / 68; Pulse 116; Resp 19; Pulse Ox 94% on 4 lpm NC; me1 17:00 BP 110 / 71; Pulse 116; Resp 18; Temp 98.2; Pulse Ox 94% on 4 lpm NC; me1 18:00 BP 96 / 72; Pulse 104; Resp 16; Pulse Ox 95% on 4 lpm NC; me1 18:45 BP 94 / 59; Pulse 105; Resp 18; Pulse Ox 94% on 4 lpm NC; me1 12:30 Body Mass Index 20.09 (63.50 kg, 177.8 cm) me1 12:30 Pain Scale: Adult me1 ED Course: 12:29 Patient arrived in ED. iw 12:29 Lulu Barlow PA-C is PHCP. sb4 12:29 Margarito Morris MD is Attending Physician. sb4 12:29 Sara Enrique, FRANSISCO is Primary Nurse. me1 12:31 Triage completed. me1 12:31 Arm band placed on Patient placed in an exam room. me1 12:36 Patient has correct armband on for positive identification. Bed in low position. Call me1 light in reach. Side rails up X2. Provided Education on: POC. Verbalized understanding. . Client placed on continuous cardiac and pulse oximetry monitoring. NIBP monitoring applied. Pulse ox on. NIBP on. 12:36 No provider procedures requiring assistance completed. Maintain EMS IV. Dressing me1 intact. Good blood return noted. Site clean \T\ dry. Gauge \T\ site: 22g LAC. Flushed with 10 mL NS. 12:52 CT Head C Spine In Process Unspecified. EDMS 12:52 CT Chest Abdomen Pelvis W/O Contrast In Process Unspecified. EDMS 13:12 Basic Metabolic Panel Sent. me1 13:12 CBC with Diff Sent. me1 13:12 Hepatic Function Sent. me1 13:12 Magnesium Sent. me1 13:12 Protime (+inr) Sent. me1 13:12 Ptt, Activated Sent. me1 13:12 Troponin High Sensitivity Sent. me1 13:39 Urinalysis w/ reflexes Sent. me1 14:32 Robbie Gar is Hospitalizing Provider. sb4 14:55 CPK Sent. me1 14:55 BNP Sent. me1 14:55 Urine Culture Sent. me1 17:23 Patient admitted, IV remains in place. me1 18:01 Urinalysis w/ reflexes Sent. me1 Administered Medications: 13:39 Drug: NS 0.9% IV 1000 ml IV at 1 bolus Per protocol; to be given as a bolus over 60 me1 minutes Route: IV; Rate: 1 bolus; Site: left antecubital; 16:30 Follow up: Response: No adverse reaction; IV Status: Completed infusion; IV Intake: me1 1000ml 14:39 CANCELLED (Physician Discretion): Heparin (AR-Bolus No thrombolytic) - [id number] sb4 units/kg IVP once; Max 5000 units 14:39 CANCELLED (Physician Discretion): Heparin (AR Drip) - ([id number] units, e8w197 ml) sb4 12 units/kg/hr IV at calculated rate Per protocol; Max initial rate 1000 units/hr 14:39 CANCELLED (Physician Discretion): aspirinchewable tablet 324 mg PO once; 81 mg tablets sb4 x 4 15:15 Drug: Aspirin PO 81 mg PO once Route: PO; me1 16:11 Follow up: Response: No adverse reaction me1 Medication: 12:36 VIS not applicable for this client. me1 Intake: 16:30 IV: 1000ml; Total: 1000ml. me1 Outcome: 14:32 Decision to Hospitalize by Provider. sb4 18:00 Admitted to me1 18:00 Admitted to Tele accompanied by tech, via stretcher, room 412, with chart, Report called to faxed, receipt confirmed with Lianne. 18:00 Condition: stable 18:00 Instructed on the need for admit, 18:45 Patient left the ED. me1 Signatures: Dispatcher [employer] Petty Denney, RN RN iw Lulu Barlow PA-C PAJonathan sb4 Sara Enrique RN RN me1 Corrections: (The following items were deleted from the chart) 17:27 17:23 Admitted to Med/surg accompanied by tech, via stretcher, room 212, with chart, me1me1 18:01 17:23 Admitted to Med/surg accompanied by tech, via stretcher, room 412, with chart, me1me1
[2024-09-25] MEDS ORDERED: ASPIRIN 81 MG CHEWABLE TABLET ONE (15:14)
--- NOTE | 2024-09-25 15:39 | P.HP ---
Certification for Inpatient Patient admitted to: Inpatient With expected LOS: <2 Midnights Practitioner: I am a practitioner with admitting privileges, knowledge of patient current condition, hospital course, and medical plan of care. Services: Services provided to patient in accordance with Admission requirements found in Title 42 Section 412.3 of the Code of Federal Regulations Patient History Date of Service: 09/25/24 Reason for admission: NSTEMI, fall History of Present Illness: 84-year-old male with a past medical history of hypertension, hypothyroidism, presents to the emergency room after fall. He reports 3 falls in the last couple days. He reports noncompliance with using rolling walker. He reports recently moved to his son's house. He reported bilateral lower extremity weakness that contributed to his falls. He reported wearing shoes with rubber soles, no reported chest pain, shortness of breath, edema, dizziness. Blood reported on his underwear, HPI is limited due to patient does not remember if he is on anticoagulation. He denied hitting his head, he reports left knee pain, left leg pain, left rib pain. He reports pain is worse with ambulation. He reports using home health previously but not currently. Plan to admit for recurrent falls, NSTEMI, right bundle branch block, with cardiology consult. Allergies No Known Allergies Allergy (Unverified 08/06/22 14:17) Home Medications: ALPRAZolam [Xanax*] 0.25 mg PO BEDTIME PRN 08/06/22 Aspirin [Ecotrin 81 MG] 81 mg PO DAILY 08/06/22 Furosemide [Lasix] 40 mg PO DAILY 08/06/22 Levothyroxine Sodium 100 mcg PO DAILY 08/06/22 Lisinopril [Zestril] 40 mg PO DAILY 08/06/22 Rosuvastatin [Crestor*] 20 mg PO DAILY 08/06/22 - Past Medical/Surgical History -: HTN -: Anxiety disorder -: HLD -: Hypothyroidism -: Permanent pacemaker - Social History Alcohol use: No CD- Drugs: No Caffeine use: Yes Place of Residence: Home Review of Systems 10-point ROS is otherwise unremarkable General: As per HPI Physical Examination - Physical Exam General: Alert, In no apparent distress, Oriented x3 HEENT: Atraumatic, Normocephalic Neck: 2+ carotid pulse no bruit, JVD not distended Respiratory: Clear to auscultation bilaterally, Normal air movement Cardiovascular: Normal pulses, Other (Sinus tachycardia right bundle branch block, rate 115 no STEMI) Capillary refill: <2 Seconds Gastrointestinal: Normal bowel sounds, Soft and benign Musculoskeletal: Other (Left leg, left knee pain, left rib pain) Integumentary: No breakdown, No significant lesion, No tenderness/swelling Neurological: Normal speech, Normal strength at 5/5 x4 extr, Cranial nerves 3-12 intact, Abnormal gait - Studies Laboratory Data (last 24 hrs) 09/25/24 09/25/24 09/25/24 13:32 13:32 13:09 WBC 7.70 Hgb 12.9 L Hct 39.5 L Plt Count 109 L PT 13.3 H INR 1.19 APTT 29.5 Sodium 137 Potassium 3.7 BUN 22 H Creatinine 1.55 H Glucose 113 H Magnesium 2.5 H Total Bilirubin 1.7 H AST 27 ALT 15 L Alkaline Phosphatase 64 Assessment and Plan - Problems (Diagnosis) (1) AICD (automatic cardioverter/defibrillator) present Current Visit: Yes Status: Chronic (2) NSTEMI (non-ST elevated myocardial infarction) Current Visit: Yes Status: Acute (3) Right bundle branch block Current Visit: Yes Status: Acute (4) Multiple falls Current Visit: Yes Status: Acute (5) Microcytic anemia Current Visit: Yes Status: Acute (6) Thrombocytopenia Current Visit: Yes Status: Acute - Plan Admit to [facility] Cardiology to consult, telemetry Trend troponin, trend BNP Trend electrolytes replace as needed Per cardiology anticoagulation aspirin, PT eval for multiple falls Left knee, left leg x-ray for pain with range of motion of the left lower extremity O2 2 L keep sats greater than 92%, will need home O2 eval prior to discharge Trend H&H, transfuse less than Full code Cardiac diet DVT SCDs Disposition patient lives at home with son, will likely need home health with discharge Discharge Plan: Home - Advance Directives Does patient have a Living Will: No Does patient have a Durable POA for Healthcare: No - Code Status/Comfort Care Code Status: Full Code Critical Care: No Time Spent Managing Pts Care (In Minutes): 55
[2024-09-25] MEDS ORDERED: ZOLPIDEM TARTRATE 5 MG TABLET PO PRN (15:47)
[2024-09-25] MEDS ORDERED: ONDANSETRON 4 MG/2 ML VIAL IV PRN (15:47)
[2024-09-25] MEDS ORDERED: TRAMADOL HCL 50 MG TAB PO PRN (15:51)
--- NOTE | 2024-09-25 18:08 | RAD REPORT ---
EXAMINATION: Hip Left 2 View CLINICAL INDICATION: Male, 84 years old. [facility] MAIN Fall Left leg, knee pain TECHNIQUE: 2 view radiograph of the left hip were obtained. COMPARISON: No prior exam. FINDINGS: No evidence of fracture or dislocation. Normal alignment. No evidence of arthropathy or oth er focal bone lesion. Soft tissues are unremarkable apart from vascular calcifications. IMPRESSION: No acute or significant abnormalities.
--- NOTE | 2024-09-25 18:09 | RAD REPORT ---
EXAM: XR Knee Left 2 View HISTORY: [facility] MAIN Left knee pain after fall COMPARISON: None TECHNIQUE: 2 views of the left knee were obtained. FINDINGS: Mild knee effusion is seen. There is no evidence of acute fracture or dislocation. No sign ificant degenerative changes are seen. No soft tissue swelling or other soft tissue abnormality is present. IMPRESSION: Mild knee joint effusion. No evidence of acute osseous abnormality.
[2024-09-25] MEDS: MELATONIN 5 MG TABLET PO SCH (21:00)
[2024-09-26 06:36] LABS: Absolute Basophils 0.1 K/uL (0-0.5); Absolute Eosinophils 0.2 K/uL (0-0.5); Absolute Lymphocytes (CBC) 0.3 K/uL (0.7-4.9); Absolute Neutrophil 5.2 K/uL (1.8-8.0); Eosinophils % 3.5 % (0-4.4); Hematocrit 31.9 % (39.6-49.0); Hemoglobin 10.9 g/dL (13.6-17.9); Lymphocytes % 5.1 % (15.3-44.8); MCH 34.2 pg (27.0-35.0); MCHC 34.4 g/dL (32.0-36.0); MCV 99.5 fL (80-100); MPV 9.4 fL (7.6-11.3); Monocytes % 14.7 % (3.3-12.3); Neutrophils % 75.7 % (41.7-73.7); Nucleated Red Blood Cells % 0.1 % (0-0); Platelets 119 thou/uL (152-406); Red Cell Distribution Width 15.1 % (12.1-15.2)
[2024-09-26 06:54] LABS: Anion Gap 5.5 mEq/L (5.0-15.0); Magnesium 2.5 mg/dL (1.6-2.4); Phosphorus 3.3 mg/dL (2.5-4.9); Potassium 3.5 mEq/L (3.5-5.1)
[2024-09-26 06:57] LABS: Troponin High Sensitivity 469.9 pg/mL (<58.9)
[2024-09-26] MEDS ORDERED: FLU (Fluarix Triv) TS24-25(6MOS UP)/PF 45 MCG/0.5 ML Syringe IM ONE (08:00)
[2024-09-26] MEDS ORDERED: PNEUMOCOCCAL VACCINE 0.5 ML IMVAC ONE (08:00)
[2024-09-26] MEDS: POTASSIUM CL SA 10 MEQ TAB PO ONE (09:18)
--- NOTE | 2024-09-26 12:04 | P.PN ---
Date of Service: 09/26/24 Review of Systems 10-point ROS is otherwise unremarkable General: As per HPI Physical Examination - Physical Exam General: Alert, In no apparent distress, Oriented x3 HEENT: Atraumatic, Normocephalic Neck: 2+ carotid pulse no bruit, JVD not distended Respiratory: Normal air movement, will add IS Cardiovascular: Normal pulses, Other Capillary refill: <2 Seconds Gastrointestinal: Normal bowel sounds, Soft and benign Musculoskeletal: Left leg, left knee tenderness, left rib tenderness, no external ecchymosis Integumentary: No breakdown, No significant lesion, No tenderness/swelling Neurological: Normal speech, Normal strength at 5/5 x4 extr, Cranial nerves 3-12 intact, Abnormal gait Assessment and Plan - Problems (Diagnosis) (1) AICD (automatic cardioverter/defibrillator) present Current Visit: Yes Status: Chronic (2) NSTEMI (non-ST elevated myocardial infarction) Current Visit: Yes Status: Acute (3) Right bundle branch block Current Visit: Yes Status: Acute (4) Multiple falls Current Visit: Yes Status: Acute (5) Microcytic anemia Current Visit: Yes Status: Acute (6) Thrombocytopenia Current Visit: Yes Status: Acute (7) SEA current Visit: yes Status: Acute - Plan Admit to [facility] Cardiology to consult, telemetry - pt has pacer/defib Trend troponin, trend BNP - troponin flat BNP remains elevated, pt takes Lasix 40mg po daily Trend electrolytes replace as needed Per cardiology anticoagulation aspirin, platelets improved from 109 to 119, will add prophylactic lovenox PT eval for multiple falls, added OT, may benefit from IPR Left knee, left leg x-ray for pain with range of motion of the left lower extremity O2 2 L keep sats greater than 92%, will need home O2 eval prior to discharge Trend H&H, transfuse less than 8. Hemoglobin stable although dropped from 12.9 to 10.9, may be multifactorial 2nd to missing lasix, sea, etc Full code Cardiac diet add IS DVT SCDs Disposition patient lives at home with son, will likely need home health with discharge Discharge Plan: Home with HH vs IPR - Advance Directives Does patient have a Living Will: No Does patient have a Durable POA for Healthcare: No - Code Status/Comfort Care Code Status: Full Code Critical Care: No Time Spent Managing Pts Care (In Minutes): 35
--- NOTE | 2024-09-26 13:24 | P.CNS ---
Date of Consult: 09/26/24 Chief Complaint: NSTEMI, fall History of Present Illness: Patient with PMH of CAD s/p CABG in the past, defibrillator placement, presented with multiple falls, due to leg weakness, denies having chest pain, no palpitations, no syncope, no SOB, no BASSETT. Allergies No Known Allergies Allergy (Unverified 08/06/22 14:17) Home medications list reviewed: Yes Home Medications: Furosemide [Lasix] 40 mg PO DAILY 08/06/22 Levothyroxine Sodium 75 mcg PO DAILY 08/06/22 Rosuvastatin [Crestor*] 20 mg PO DAILY 08/06/22 - Past Medical/Surgical History Diabetic: No -: HTN -: Anxiety disorder -: HLD -: Hypothyroidism -: Permanent pacemaker - Social History Smoking Status: Former smoker Alcohol use: No CD- Drugs: No Caffeine use: Yes Place of Residence: Home Review of Systems 10-point ROS is otherwise unremarkable Physical Examination Temp Pulse Resp BP Pulse Ox 97.7 F 74 14 111/60 96 09/26/24 11:43 09/26/24 11:43 09/26/24 11:43 09/26/24 11:43 09/26/24 11:43 General: Alert, In no apparent distress HEENT: Atraumatic, PERRLA, Mucous membr. moist/pink, EOMI, Sclerae nonicteric Neck: Supple, 2+ carotid pulse no bruit, No LAD, Without JVD or thyroid abnormality Respiratory: Clear to auscultation bilaterally, Normal air movement Cardiovascular: Regular rate/rhythm, Normal S1 S2 Gastrointestinal: Normal bowel sounds, No tenderness Musculoskeletal: No tenderness Integumentary: No rashes Neurological: Normal gait, Normal speech, Normal tone, Normal affect Lymphatics: No axilla or inguinal lymphadenopathy Laboratory Data (last 24 hrs) 09/25/24 09/25/24 09/25/24 13:32 13:32 13:09 WBC 7.70 Hgb 12.9 L Hct 39.5 L Plt Count 109 L PT 13.3 H INR 1.19 APTT 29.5 Sodium 137 Potassium 3.7 BUN 22 H Creatinine 1.55 H Glucose 113 H Magnesium 2.5 H Total Bilirubin 1.7 H AST 27 ALT 15 L Alkaline Phosphatase 64 - Problems (1) NSTEMI (non-ST elevated myocardial infarction) Current Visit: Yes Status: Acute Plan: Patient with PMH of CAD, CABG denies chest pain, got mild elevated troponin that trended down, discussed possible options with patient and wants to proceed with medical therapy. ASA 81 mg daily Plavix 75 mg daily (2) AICD (automatic cardioverter/defibrillator) present Current Visit: Yes Status: Chronic Plan: outpatient device interrogation. (3) Elevated brain natriuretic peptide (BNP) level Current Visit: Yes Status: Acute Plan: recommend changing lasix to 40 mg IV bid. monitor input and output. monitor and correct electrolytes.
[2024-09-26] MEDS: PREDNISOLONE 1% OPTH SOLN 5ML RIGHT EYE SCH (13:26)
[2024-09-26] MEDS: ENOXAPARIN 40 MG/0.4 ML SQ SCH (16:00)
[2024-09-26] MEDS: ROSUVASTATIN 10 MG TAB PO SCH (20:57)
[2024-09-27] MEDS: LEVOTHYROXINE SOD 0.075 MG TAB PO SCH (05:39)
[2024-09-27 07:12] LABS: Absolute Basophils 0.1 K/uL (0-0.5); Absolute Eosinophils 0.2 K/uL (0-0.5); Absolute Lymphocytes (CBC) 0.4 K/uL (0.7-4.9); Absolute Monocytes 0.8 K/uL (0.1-1.3); Absolute Neutrophil 3.8 K/uL (1.8-8.0); Basophils % 1.2 % (0-1.3); Hematocrit 31.8 % (39.6-49.0); Hemoglobin 10.5 g/dL (13.6-17.9); Lymphocytes % 7.7 % (15.3-44.8); MCH 33.2 pg (27.0-35.0); MCHC 33.1 g/dL (32.0-36.0); MCV 100.3 fL (80-100); MPV 9.8 fL (7.6-11.3); Monocytes % 14.5 % (3.3-12.3); Neutrophils % 72.6 % (41.7-73.7); Platelets 112 thou/uL (152-406); RBC Red Blood Cell Count 3.17 M/uL (4.33-5.43); Red Cell Distribution Width 15.6 % (12.1-15.2)
[2024-09-27 07:39] LABS: Anion Gap 8.8 mEq/L (5.0-15.0); Magnesium 2.6 mg/dL (1.6-2.4); Potassium 3.8 mEq/L (3.5-5.1)
[2024-09-27] MEDS: CLOPIDOGREL 75 MG TABLET PO SCH (07:42)
[2024-09-27] MEDS: FUROSEMIDE 40 MG/4 ML VIAL IV SCH (07:42)
[2024-09-27] MEDS: ASPIRIN EC 81 MG TAB PO SCH (07:42)
[2024-09-27 07:44] LABS: Thyroid Stimulating Hormone 4.09 uIU/mL (0.358-3.740); Troponin High Sensitivity 286.2 pg/mL (<58.9)
[2024-09-27] MEDS: POTASSIUM CL SA 10 MEQ TAB PO ONE (08:28)
[2024-09-27] MEDS ORDERED: FUROSEMIDE 40 MG TABLET PO SCH (09:00)
--- NOTE | 2024-09-27 10:12 | P.PN ---
Date of Service: 09/27/24 Subjective pt sleeping this am with no complaints, fatigue Review of Systems 10-point ROS is otherwise unremarkable General: As per HPI left rib pain Physical Examination - Physical Exam General: Alert, In no apparent distress, Oriented x3 HEENT: Atraumatic, Normocephalic Neck: 2+ carotid pulse no bruit, JVD not distended Respiratory: Normal air movement, will add IS Cardiovascular: Normal pulses, Other Capillary refill: <2 Seconds Gastrointestinal: Normal bowel sounds, Soft and benign Musculoskeletal: Left leg, left knee tenderness, left rib tenderness, no external ecchymosis Integumentary: No breakdown, No significant lesion, No tenderness/swelling Neurological: Normal speech, Normal strength at 5/5 x4 extr, Cranial nerves 3-12 intact, Abnormal gait Assessment and Plan - Problems (Diagnosis) (1) AICD (automatic cardioverter/defibrillator) present Current Visit: Yes Status: Chronic (2) NSTEMI (non-ST elevated myocardial infarction) Current Visit: Yes Status: Acute (3) Right bundle branch block Current Visit: Yes Status: Acute (4) Multiple falls Current Visit: Yes Status: Acute (5) Microcytic anemia Current Visit: Yes Status: Acute (6) Thrombocytopenia Current Visit: Yes Status: Acute (7) SEA current Visit: yes Status: Acute - Plan Admit to [facility] Cardiology to consult, telemetry - pt has pacer/defib Trend troponin, trend BNP - troponin flat BNP remains elevated, pt takes Lasix 40mg po daily, was increased to 40mg IV BID. This am (09/27/24) pt is mildly hypotensive with SBP 91-97, will hold IV lasix this am and give 40mg IV this afternoon. Troponin down from 680 to 280 this am. combination cardiac contusion, CPK elevation, recurrent falls in short term, clinical left rib fracture, but denies chest pain except chest wall pain with movement, palpation Trend electrolytes replace as needed Per cardiology anticoagulation aspirin, platelets improved from 109 to 119, will add prophylactic lovenox PT eval for multiple falls, added OT, may benefit from IPR Left knee, left leg x-ray for pain with range of motion of the left lower extremity O2 2 L keep sats greater than 92%, will need home O2 eval prior to discharge - RN attempting to wean O2 today Trend H&H, transfuse less than 8. Hemoglobin stable although dropped from 12.9 to 10.9, may be multifactorial 2nd to missing lasix, sea, etc Full code Cardiac diet add IS DVT SCDs Disposition patient lives at home with son, will likely need home health with discharge Discharge Plan: Home with HH vs IPR - Advance Directives Does patient have a Living Will: No Does patient have a Durable POA for Healthcare: No - Code Status/Comfort Care Code Status: Full Code Critical Care: No Time Spent Managing Pts Care (In Minutes): 35
--- NOTE | 2024-09-27 14:41 | ECHO ---
HEIGHT: 5 ft 10 in WEIGHT: 144 lb 0 oz DATE OF STUDY: 09/27/[address]: Claribel Fnog RAG BOILERJonathan 2-DIMENSIONAL: YES M.MODE: YES DOPPLER: YES COLOR FLOW: YES TDS: NO PORTABLE: YES DEFINITY: NO BUBBLE STUDY: NO DIAGNOSIS: ELEVATED TROPNIN CARDIAC HISTORY: CATHERIZATION: SURGERY: PROSTHETIC VALVE: PACEMAKER: MEASUREMENTS (cm) DIASTOLIC (NORMALS) SYSTOLIC (NORMALS) IVSd 1.1 (0.6-1.2) LA Diam 4.0 (1.9-4.0) LVEF 25-30% LVIDd 4.7 (3.5-5.7) LVIDs 4.2 (2.0-3.5) %FS 12% LVPWd 1.1 (0.6-1.2) Ao Diam 3.1 (2.0-3.7) 2 DIMENSIONAL ASSESSMENT: RIGHT ATRIUM: NORMAL LEFT ATRIUM: MILDLY DILATED RIGHT VENTRICLE: NORMAL, PACEMAKER LEFT VENTRICLE: MILDLY DILATED TRICUSPID VALVE: MILD TRICUSPID REGURGITATION MITRAL VALVE: MILD MITRAL REGURGITATION PULMONIC VALVE: NORMAL AORTIC VALVE: CALCIFIED PERICARDIAL EFFUSION: NONE AORTIC ROOT: NORMAL LEFT VENTRICULAR WALL MOTION: SEVERE GLOBAL HYPOKINESIS. DOPPLER/COLOR FLOW: DIASTOLIC DYSFUNCTION. COMMENTS: 1. SEVERELY REDUCED LEFT VENTRICULAR SYSTOLIC FUNCTION, EJECTION FRACTION 25-30%, SEVERE GLOBAL HYPOKINESIS. 2. DIASTOLIC DYSFUNCTION. 3. MILDLY ELEVATED FILLING PRESSURE (RIGHT ATRIAL PRESSURE >10-15mmHg) 4. MILD PULMONARY HYPERTENSION (RIGHT VENTRICULAR SYSTOLIC PRESSURE 40-45mmHg). 5. MILD MITRAL REGURGITATION. TECHNOLOGIST: HARITHA ROMERO
[2024-09-28 05:51] LABS: Absolute Basophils 0.1 K/uL (0-0.5); Absolute Eosinophils 0.1 K/uL (0-0.5); Absolute Lymphocytes (CBC) 0.7 K/uL (0.7-4.9); Absolute Monocytes 0.7 K/uL (0.1-1.3); Absolute Neutrophil 3.9 K/uL (1.8-8.0); Basophils % 1.1 % (0-1.3); Eosinophils % 1.9 % (0-4.4); Hematocrit 34.6 % (39.6-49.0); Hemoglobin 11.7 g/dL (13.6-17.9); Lymphocytes % 12.1 % (15.3-44.8); MCH 33.7 pg (27.0-35.0); MCHC 33.9 g/dL (32.0-36.0); MCV 99.3 fL (80-100); MPV 9.2 fL (7.6-11.3); Monocytes % 12.9 % (3.3-12.3); Platelets 135 thou/uL (152-406); RBC Red Blood Cell Count 3.48 M/uL (4.33-5.43); Red Cell Distribution Width 15.2 % (12.1-15.2)
[2024-09-28 06:09] LABS: Anion Gap 7.9 mEq/L (5.0-15.0); Magnesium 2.5 mg/dL (1.6-2.4); Potassium 3.9 mEq/L (3.5-5.1)
[2024-09-28 06:11] LABS: Troponin High Sensitivity 255.1 pg/mL (<58.9)
--- NOTE | 2024-09-28 10:19 | P.PN ---
Subjective Date of Service: 09/28/24 Chief Complaint: NSTEMI, fall Subjective: No new changes, No C/O voiced, Tolerating diet, Ambulating, Improving Review of Systems 10-point ROS is otherwise unremarkable Physical Examination - Vital Signs Temperature: 98.3 F Blood Pressure: 118/62 Pulse: 90 Respirations: 16 Pulse Ox (%): 92 - Physical Exam General: Alert, In no apparent distress HEENT: Atraumatic, PERRLA, EOMI Neck: Supple, JVD not distended Respiratory: Clear to auscultation bilaterally, Normal air movement Cardiovascular: Regular rate/rhythm, Normal S1 S2 Gastrointestinal: Normal bowel sounds, No tenderness Musculoskeletal: No tenderness Integumentary: No rashes Neurological: Normal speech, Normal tone, Normal affect Lymphatics: No axilla or inguinal lymphadenopathy - Studies Microbiology Data (last 24 hrs): 09/25/24 13:30 Clean Catch Urine [place] Count - Final <10,000 CFU/ML. 09/25/24 13:30 Clean Catch Urine - Final MIXED PAUL. Medications List Reviewed: Yes Assessment And Plan - Current Problems (Diagnosis) (1) NSTEMI (non-ST elevated myocardial infarction) Current Visit: Yes Status: Acute Plan: Patient with PMH of CAD, CABG denies chest pain, got mild elevated troponin that trended down, discussed possible options with patient and wants to proceed with medical therapy. ASA 81 mg daily Plavix 75 mg daily Crestor 20 mg daily (2) AICD (automatic cardioverter/defibrillator) present Current Visit: Yes Status: Chronic Plan: outpatient device interrogation. (3) Elevated brain natriuretic peptide (BNP) level Current Visit: Yes Status: Acute Plan: Echo shows severe reduced LV systolic function, EF 25%, continue lasix 40 mg IV bid for one more day then switch to lasix 40 mg po daily tomorrow add Coreg 3.125 mg po BID add lisinopril 2.5 mg po daily, starting tomorrow monitor input and output. monitor and correct electrolytes.
[2024-09-28] MEDS: carvediloL 3.125 MG TAB PO ONE (10:34)
--- NOTE | 2024-09-28 11:50 | RAD REPORT ---
EXAM:Femur Left Wo Con Clinical history: Leg pain. Technique. Axial tomography left femur obtained. Coronal and sagittal reconstruction performed.One or more of the following dose reduction techniques were used: Automated exposure control, adjustment of the mA and/or kV according to the patient size, and/or iterative reconstruction. Unless otherwise specified, incidental findings do not require dedicated imaging follow-up. [id number]. FINDINGS: No fracture visualized. No dislocation Areas of sclerosis and lucencies within the left femoral head probably avascular necrosis. No flatten ing of the left femoral head seen. Musculature normal size and density. No significant subcutaneous hematoma. Small knee joint effusion. IMPRESSION: No fracture seen. Avascular necrosis left femoral head
--- NOTE | 2024-09-28 12:28 | P.PN ---
Date of Service: 09/28/24 Subjective alert and oriented. C/o decreased ROM left leg second to pain. will re-eval films/scans Review of Systems 10-point ROS is otherwise unremarkable General: As per HPI left rib pain improved left hip/knee pain Physical Examination - Physical Exam General: Alert, In no apparent distress, Oriented x3 HEENT: Atraumatic, Normocephalic Neck: 2+ carotid pulse no bruit, JVD not distended Respiratory: Normal air movement, will add IS Cardiovascular: Normal pulses, Other Capillary refill: <2 Seconds Gastrointestinal: Normal bowel sounds, Soft and benign Musculoskeletal: Left leg, left knee tenderness, left rib tenderness (improved), no external ecchymosis Integumentary: No breakdown, No significant lesion, No tenderness/swelling Neurological: Normal speech, Normal strength at 5/5 x4 extr, Cranial nerves 3-12 intact, Abnormal gait Assessment and Plan - Problems (Diagnosis) (1) AICD (automatic cardioverter/defibrillator) present Current Visit: Yes Status: Chronic (2) NSTEMI (non-ST elevated myocardial infarction) Current Visit: Yes Status: Acute (3) Right bundle branch block Current Visit: Yes Status: Acute (4) Multiple falls Current Visit: Yes Status: Acute (5) Microcytic anemia Current Visit: Yes Status: Acute (6) Thrombocytopenia Current Visit: Yes Status: Acute (7) SEA current Visit: yes Status: Acute - Plan Admit to [facility] Cardiology to consult, telemetry - pt has pacer/defib Trend troponin, trend BNP - troponin flat BNP remains elevated, pt takes Lasix 40mg po daily, was increased to 40mg IV BID. This am (09/27/24) pt is mildly hypotensive with SBP 91-97, will hold IV lasix this am and give 40mg IV this afternoon. Troponin down from 680 to 280 this am. combination cardiac contusion, CPK elevation, recurrent falls in short term, clinical left rib fracture, but denies chest pain except chest wall pain with movement, palpation Trend electrolytes replace as needed Per cardiology anticoagulation aspirin, platelets improved from 109 to 119, will add prophylactic lovenox PT eval for multiple falls, added OT, may benefit from IPR Left knee, left leg x-ray for pain with range of motion of the left lower extremity (mild joint effusion) O2 2 L keep sats greater than 92%, will need home O2 eval prior to discharge - RN attempting to wean O2 today Trend H&H, transfuse less than 8. Hemoglobin stable although dropped from 12.9 to 10.9, may be multifactorial 2nd to missing lasix, sea, etc Full code Cardiac diet add IS DVT SCDs 09/28/24 attempts working with PT but significant left hip pain down through knee. 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 Re-CT left hip. Concern for acetabular fx and femoral head avascular necrosis vs fx. Consulted Dr. Luong. He will eval soon. He reviewed partial film and states only [facility] for transfers. Notified PT Blood pressure improved. Started Lasix 40mg IV BID again this am for two more doses and then with switch to 40mg po daily per cardiology recs Disposition patient lives at home with son, will likely need home health with discharge Discharge Plan: Home with HH vs IPR - Advance Directives Does patient have a Living Will: No Does patient have a Durable POA for Healthcare: No - Code Status/Comfort Care Code Status: Full Code Critical Care: No Time Spent Managing Pts Care (In Minutes): 35
[2024-09-28] MEDS: carvediloL 3.125 MG TAB PO SCH (17:48)
--- NOTE | 2024-09-28 20:18 | CON ---
Date of Consultation: 09/28/2024 This is my first time seeing this patient to my knowledge. He is an 84-year-old gentleman who unfort unately fell 3 times. The first 2 times he fell, he said he did fairly well; however, on Wednesday, a pparently lost his balance and fell again, landing upon his left side. He had immediate pain and pro blems, and has had difficulty with weightbearing as well as with movement of his left lower extremity since that time. He has had x-rays and CAT scans. The most recent CAT scan being done today, and t he most recent CAT scan does reveal an inferior pubic ramus fracture as well as a nondisplaced acetab ular dome fracture. No other fracture identified by Radiology or with these studies. On physical ex amination, he does not really have any pain whenever he is lying in the bed. He has no effusion of t he knee. Gentle range of motion of the hip does not cause any significant pain, although attempted m otion by the patient does cause discomfort. All of his other long bones were palpated without any pa in or crepitation. Assessment: 84-year-old male, now with inferior pubic ramus fracture as well as a nondisplaced fract ure of the acetabular dome. Plan: At this time, I think that this should be treated nonoperatively and I expect the inferior reji i fracture to heal uneventfully; however, the acetabular fracture was somewhat more concerned as it i s definitely over the weightbearing dome. I would say touchdown weightbearing only and only for mcgarry sfers. I also would pursue CT scan of the same area in approximately 1 week to check for any displac ement. Hopefully I will not displace as operative intervention regarding this would be very difficul t given his current medical condition. He says he understands everything as presented, and this has been communicated to the medical team. Not sure when he will be discharged from the hospital, but at some point CT scan should be coordinated and hopefully I will be notified about this if he is outsid e of the hospital. If it is nondisplaced, we will definitely continue with touchdown weightbearing a nd follow with standard x-rays of the hip. If there is some displacement, we may need to refer to ysician who treat acetabular fractures. Hopefully, this will not occur. Consider anticoagulation for possibility of DVTs for this fracture and limited mobility; montanez elizabeth, otherwise plan as stated. SE/MODL Voice ID: [id number] Report ID: [id number]
[2024-09-29] MEDS: FUROSEMIDE 40 MG TABLET PO SCH (08:28)
[2024-09-29] MEDS: POLYETHYL GLY 3350 17 GM/DOSE PO ONE (16:10)
--- NOTE | 2024-09-29 16:29 | P.PN ---
Date of Service: 09/29/24 Subjective alert and oriented. acetabular fracture identified. Pt deciding whether he will accept inpatient rehab. I do not feel he should go home with HH as he has significant needs for TDWB for transferring assistance Review of Systems 10-point ROS is otherwise unremarkable General: As per HPI left rib pain improved left hip/knee pain Physical Examination - Physical Exam General: Alert, In no apparent distress, Oriented x3 HEENT: Atraumatic, Normocephalic Neck: 2+ carotid pulse no bruit, JVD not distended Respiratory: Normal air movement, will add IS Cardiovascular: Normal pulses, Other Capillary refill: <2 Seconds Gastrointestinal: Normal bowel sounds, Soft and benign Musculoskeletal: Left leg, left knee tenderness, left rib tenderness (improved), no external ecchymosis Integumentary: No breakdown, No significant lesion, No tenderness/swelling Neurological: Normal speech, Normal strength at 5/5 x4 extr, Cranial nerves 3-12 intact, Abnormal gait Assessment and Plan - Problems (Diagnosis) (1) AICD (automatic cardioverter/defibrillator) present Current Visit: Yes Status: Chronic (2) NSTEMI (non-ST elevated myocardial infarction) Current Visit: Yes Status: Acute (3) Right bundle branch block Current Visit: Yes Status: Acute (4) Multiple falls Current Visit: Yes Status: Acute (5) Microcytic anemia Current Visit: Yes Status: Acute (6) Thrombocytopenia Current Visit: Yes Status: Acute (7) SEA current Visit: yes Status: Acute - Plan Admit to [facility] Cardiology to consult, telemetry - pt has pacer/defib Trend troponin, trend BNP - troponin flat BNP remains elevated, pt takes Lasix 40mg po daily, was increased to 40mg IV BID. This am (09/27/24) pt is mildly hypotensive with SBP 91-97, will hold IV lasix this am and give 40mg IV this afternoon. Troponin down from 680 to 280 this am. combination cardiac contusion, CPK elevation, recurrent falls in short term, clinical left rib fracture, but denies chest pain except chest wall pain with movement, palpation Trend electrolytes replace as needed Per cardiology anticoagulation aspirin, platelets improved from 109 to 119, will add prophylactic lovenox PT eval for multiple falls, added OT, may benefit from IPR Left knee, left leg x-ray for pain with range of motion of the left lower extremity (mild joint effusion) O2 2 L keep sats greater than 92%, will need home O2 eval prior to discharge - RN attempting to wean O2 today Trend H&H, transfuse less than 8. Hemoglobin stable although dropped from 12.9 to 10.9, may be multifactorial 2nd to missing lasix, sea, etc Full code Cardiac diet add IS DVT SCDs 09/28/24 attempts working with PT but significant left hip pain down through knee. 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 Re-CT left hip. Concern for acetabular fx and femoral head avascular necrosis vs fx. Consulted Dr. Luong. He will eval soon. He reviewed partial film and states only [facility] for transfers. Notified PT Blood pressure improved. Started Lasix 40mg IV BID again this am for two more doses and then with switch to 40mg po daily per cardiology recs 09/29/24 Lasix switched to 40mg po daily Mr. Vargas agrees to IPR and chose [facility] awaiting approval continues to work with PT Disposition patient lives at home with son, will likely need home health with discharge Discharge Plan: Home with HH vs IPR - Advance Directives Does patient have a Living Will: No Does patient have a Durable POA for Healthcare: No - Code Status/Comfort Care Code Status: Full Code Critical Care: No Time Spent Managing Pts Care (In Minutes): 35
[2024-09-29] MEDS: guaiFENesin 100 MG/5 ML UCUP PO PRN (17:04)
--- NOTE | 2024-09-30 12:28 | P.PN ---
Date of Service: 09/30/24 manager linux or security systems administrator send me the text message to call peer to peer review on this patient with the [employer] by Wednesday at 2 PM. I called [phone], option 2 , transferred to automatic voice message saying that they do not take a call on the weekend or during the week after 4:30PM. I left voice message to make a request for peer to peer review. [employer] ID [id number]. Callback #[phone].
[2024-10-01 00:51] VITALS: BMI 20.2
[2024-10-01 09:44] LABS: Absolute Eosinophils 0.1 K/uL (0-0.5); Absolute Lymphocytes (CBC) 0.5 K/uL (0.7-4.9); Absolute Monocytes 0.7 K/uL (0.1-1.3); Absolute Neutrophil 3.7 K/uL (1.8-8.0); Basophils % 0.7 % (0-1.3); Eosinophils % 1.8 % (0-4.4); Hematocrit 38.1 % (39.6-49.0); Hemoglobin 12.5 g/dL (13.6-17.9); Lymphocytes % 9.1 % (15.3-44.8); MCH 32.9 pg (27.0-35.0); MCHC 32.7 g/dL (32.0-36.0); MCV 100.6 fL (80-100); MPV 8.7 fL (7.6-11.3); Monocytes % 14.3 % (3.3-12.3); Neutrophils % 74.1 % (41.7-73.7); Platelets 190 thou/uL (152-406); RBC Red Blood Cell Count 3.78 M/uL (4.33-5.43); Red Cell Distribution Width 15.4 % (12.1-15.2)
[2024-10-01 10:00] LABS: AST/SGOT 21 U/L (15-37); Albumin 2.7 g/dL (3.4-5.0); Albumin/Globulin Ratio 0.8 (1.1-1.8); Alkaline Phosphatase 69 U/L (45-117); Anion Gap 4.8 mEq/L (5.0-15.0); BUN Blood Urea Nitrogen 28 mg/dL (7-18); Bicarbonate 31 mEq/L (21-32); Bilirubin Total 0.7 mg/dL (0.2-1.0); Globulin 3.3 g/dL (2.3-3.5); Glomerular Filtration Rate 61 ml/min (=/>90); Glucose Level 122 mg/dL (74-106); Potassium 3.8 mEq/L (3.5-5.1); Sodium Level 136 mEq/L (136-145)
[2024-10-01 10:02] LABS: ALT/SGPT < 14 U/L (16-61)
--- NOTE | 2024-10-01 11:52 | P.PN ---
Date of Service: 10/01/24 Subjective alert and oriented. acetabular fracture identified. Pt will accept inpatient rehab. We will call for peer to peer tomorrow during their business hours. Review of Systems 10-point ROS is otherwise unremarkable General: As per HPI left rib pain improved left hip/knee pain Physical Examination - Physical Exam General: Alert, In no apparent distress, Oriented x3 HEENT: Atraumatic, Normocephalic Neck: 2+ carotid pulse no bruit, JVD not distended Respiratory: Normal air movement, will add IS Cardiovascular: Normal pulses, Other Capillary refill: <2 Seconds Gastrointestinal: Normal bowel sounds, Soft and benign Musculoskeletal: Left leg, left knee tenderness, left rib tenderness (improved), no external ecchymosis Integumentary: No breakdown, No significant lesion, No tenderness/swelling Neurological: Normal speech, Normal strength at 5/5 x4 extr, Cranial nerves 3-12 intact, Abnormal gait Assessment and Plan - Problems (Diagnosis) (1) AICD (automatic cardioverter/defibrillator) present Current Visit: Yes Status: Chronic (2) NSTEMI (non-ST elevated myocardial infarction) Current Visit: Yes Status: Acute (3) Right bundle branch block Current Visit: Yes Status: Acute (4) Multiple falls Current Visit: Yes Status: Acute (5) Microcytic anemia Current Visit: Yes Status: Acute (6) Thrombocytopenia Current Visit: Yes Status: Acute (7) SEA current Visit: yes Status: Acute - Plan Admit to [facility] Cardiology to consult, telemetry - pt has pacer/defib Trend troponin, trend BNP - troponin flat BNP remains elevated, pt takes Lasix 40mg po daily, was increased to 40mg IV BID. This am (09/27/24) pt is mildly hypotensive with SBP 91-97, will hold IV lasix this am and give 40mg IV this afternoon. Troponin down from 680 to 280 this am. combination cardiac contusion, CPK elevation, recurrent falls in short term, clinical left rib fracture, but d enies chest pain except chest wall pain with movement, palpation Trend electrolytes replace as needed Per cardiology anticoagulation aspirin, platelets improved from 109 to 119, will add prophylactic lovenox PT eval for multiple falls, added OT, may benefit from IPR Left knee, left leg x-ray for pain with range of motion of the left lower extremity (mild joint effusion) O2 2 L keep sats greater than 92%, will need home O2 eval prior to discharge - RN attempting to wean O2 today Trend H&H, transfuse less than 8. Hemoglobin stable although dropped from 12.9 to 10.9, may be multifactorial 2nd to missing lasix, sea, etc Full code Cardiac diet add IS DVT SCDs 09/28/24 attempts working with PT but significant left hip pain down through knee. 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 Re-CT left hip. Concern for acetabular fx and femoral head avascular necrosis vs fx. Consulted Dr. Luong. He will eval soon. He reviewed partial film and states only [facility] for transfers. Notified PT Blood pressure improved. Started Lasix 40mg IV BID again this am for two more doses and then with switch to 40mg po daily per cardiology recs 09/29/24 Lasix switched to 40mg po daily Mr. Vargas agrees to IPR and chose [facility] awaiting approval continues to work with PT 10/01/24 no complaints awaiting Peer to Peer for approval to IPR. Pt is still working with PT. VSS SEA resolving Hemoglobin recovered and stable Disposition patient lives at home with son, will likely need home health with discharge Discharge Plan: Home with HH vs IPR - Advance Directives Does patient have a Living Will: No Does patient have a Durable POA for Healthcare: No - Code Status/Comfort Care Code Status: Full Code Critical Care: No Time Spent Managing Pts Care (In Minutes): 35
[2024-10-01] MEDS: GUAIFENESIN 600 MG SA TAB PO SCH (20:45)
[2024-10-02 06:42] LABS: Absolute Eosinophils 0.2 K/uL (0-0.5); Absolute Lymphocytes (CBC) 0.6 K/uL (0.7-4.9); Absolute Monocytes 0.8 K/uL (0.1-1.3); Absolute Neutrophil 3.9 K/uL (1.8-8.0); Basophils % 0.6 % (0-1.3); Hematocrit 36.8 % (39.6-49.0); Hemoglobin 12.5 g/dL (13.6-17.9); Lymphocytes % 10.2 % (15.3-44.8); MCH 33.8 pg (27.0-35.0); MCV 99.2 fL (80-100); MPV 8.3 fL (7.6-11.3); Monocytes % 14.9 % (3.3-12.3); Neutrophils % 71.3 % (41.7-73.7); Nucleated Red Blood Cells % 0.1 % (0-0); Platelets 219 thou/uL (152-406); RBC Red Blood Cell Count 3.71 M/uL (4.33-5.43); Red Cell Distribution Width 15.1 % (12.1-15.2)
[2024-10-02 07:07] LABS: ALT/SGPT < 14 U/L (16-61); AST/SGOT 18 U/L (15-37); Albumin 2.7 g/dL (3.4-5.0); Albumin/Globulin Ratio 0.8 (1.1-1.8); Alkaline Phosphatase 69 U/L (45-117); BUN Blood Urea Nitrogen 27 mg/dL (7-18); Bicarbonate 29 mEq/L (21-32); Bilirubin Total 0.9 mg/dL (0.2-1.0); Globulin 3.2 g/dL (2.3-3.5); Glomerular Filtration Rate 64 ml/min (=/>90); Glucose Level 95 mg/dL (74-106); Protein, Total 5.9 g/dL (6.4-8.2); Sodium Level 136 mEq/L (136-145)
--- NOTE | 2024-10-02 10:22 | P.PN ---
Date of Service: 10/02/24 Subjective alert and oriented. acetabular fracture identified. Pt will accept inpatient rehab. We will call for peer to peer tomorrow during their business hours. Review of Systems 10-point ROS is otherwise unremarkable General: As per HPI left rib pain improved left hip/knee pain Physical Examination - Physical Exam General: Alert, In no apparent distress, Oriented x3 HEENT: Atraumatic, Normocephalic Neck: 2+ carotid pulse no bruit, JVD not distended Respiratory: Normal air movement, will add IS Cardiovascular: Normal pulses, Other Capillary refill: <2 Seconds Gastrointestinal: Normal bowel sounds, Soft and benign Musculoskeletal: Left leg, left knee tenderness, left rib tenderness (improved), no external ecchymosis Integumentary: No breakdown, No significant lesion, No tenderness/swelling Neurological: Normal speech, Normal strength at 5/5 x4 extr, Cranial nerves 3-12 intact, Abnormal gait Assessment and Plan - Problems (Diagnosis) (1) AICD (automatic cardioverter/defibrillator) present Current Visit: Yes Status: Chronic (2) NSTEMI (non-ST elevated myocardial infarction) Current Visit: Yes Status: Acute (3) Right bundle branch block Current Visit: Yes Status: Acute (4) Multiple falls Current Visit: Yes Status: Acute (5) Microcytic anemia Current Visit: Yes Status: Acute (6) Thrombocytopenia Current Visit: Yes Status: Acute (7) SEA current Visit: yes Status: Acute - Plan Admit to [facility] Cardiology to consult, telemetry - pt has pacer/defib Trend troponin, trend BNP - troponin flat BNP remains elevated, pt takes Lasix 40mg po daily, was increased to 40mg IV BID. This am (09/27/24) pt is mildly hypotensive with SBP 91-97, will hold IV lasix this am and give 40mg IV this afternoon. Troponin down from 680 to 280 this am. combination cardiac contusion, CPK elevation, recurrent falls in short term, clinical left rib fracture, but d enies chest pain except chest wall pain with movement, palpation Trend electrolytes replace as needed Per cardiology anticoagulation aspirin, platelets improved from 109 to 119, will add prophylactic lovenox PT eval for multiple falls, added OT, may benefit from IPR Left knee, left leg x-ray for pain with range of motion of the left lower extremity (mild joint effusion) O2 2 L keep sats greater than 92%, will need home O2 eval prior to discharge - RN attempting to wean O2 today Trend H&H, transfuse less than 8. Hemoglobin stable although dropped from 12.9 to 10.9, may be multifactorial 2nd to missing lasix, sea, etc Full code Cardiac diet add IS DVT SCDs 09/28/24 attempts working with PT but significant left hip pain down through knee. 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 Re-CT left hip. Concern for acetabular fx and femoral head avascular necrosis vs fx. Consulted Dr. Luong. He will eval soon. He reviewed partial film and states only [facility] for transfers. Notified PT Blood pressure improved. Started Lasix 40mg IV BID again this am for two more doses and then with switch to 40mg po daily per cardiology recs 09/29/24 Lasix switched to 40mg po daily Mr. Vargas agrees to IPR and chose [facility] I[facility] awaiting approval continues to work with PT 10/01/24 no complaints awaiting Peer to Peer for approval to IPR. Pt is still working with PT. VSS SEA resolving Hemoglobin recovered and stable 10/02/24 [facility]. Appt for 1pm today with Dr. Moss. Pt in NAD, awaiting decision. VSS Disposition patient lives at home with son, will likely need home health with discharge Discharge Plan: Home with HH vs IPR - Advance Directives Does patient have a Living Will: No Does patient have a Durable POA for Healthcare: No - Code Status/Comfort Care Code Status: Full Code Critical Care: No Time Spent Managing Pts Care (In Minutes): 35 <Dasha Hurt - Last Filed: 10/02/24 10:19> Patient was seen and examined. Events of the last 24 hours have been noted. Spoke with with MICHAEL regarding patient's clinical picture after evaluating and examining the patient independently. I performed a substantial part of the MDM during this patient's care today. I personally made or approved the documented management plan and acknowledge its risk of complications. I agree with the findings and documentation provided in the MICHAEL's notes. <Leonel Malik - Last Filed: 10/08/24 20:36>
[2024-10-03 07:10] LABS: Absolute Basophils 0.1 K/uL (0-0.5); Absolute Eosinophils 0.1 K/uL (0-0.5); Absolute Lymphocytes (CBC) 0.4 K/uL (0.7-4.9); Absolute Monocytes 0.8 K/uL (0.1-1.3); Absolute Neutrophil 3.8 K/uL (1.8-8.0); Basophils % 1.3 % (0-1.3); Eosinophils % 2.6 % (0-4.4); Hematocrit 38.4 % (39.6-49.0); Hemoglobin 13.1 g/dL (13.6-17.9); Lymphocytes % 8.2 % (15.3-44.8); MCH 33.6 pg (27.0-35.0); MCHC 34.1 g/dL (32.0-36.0); MCV 98.5 fL (80-100); MPV 8.4 fL (7.6-11.3); Monocytes % 14.5 % (3.3-12.3); Neutrophils % 73.4 % (41.7-73.7); Nucleated Red Blood Cells % 0.1 % (0-0); Platelets 222 thou/uL (152-406); Red Cell Distribution Width 15.5 % (12.1-15.2)
[2024-10-03 07:35] LABS: AST/SGOT 21 U/L (15-37); Albumin 2.7 g/dL (3.4-5.0); Albumin/Globulin Ratio 0.8 (1.1-1.8); Alkaline Phosphatase 78 U/L (45-117); BUN Blood Urea Nitrogen 23 mg/dL (7-18); Bicarbonate 28 mEq/L (21-32); Bilirubin Total 0.8 mg/dL (0.2-1.0); Globulin 3.5 g/dL (2.3-3.5); Glomerular Filtration Rate 71 ml/min (=/>90); Glucose Level 94 mg/dL (74-106); Protein, Total 6.2 g/dL (6.4-8.2); Sodium Level 137 mEq/L (136-145)
[2024-10-03 07:38] LABS: ALT/SGPT < 14 U/L (16-61)
[2024-10-04 07:43] LABS: Absolute Basophils 0.1 K/uL (0-0.5); Absolute Eosinophils 0.2 K/uL (0-0.5); Absolute Lymphocytes (CBC) 0.5 K/uL (0.7-4.9); Absolute Monocytes 0.7 K/uL (0.1-1.3); Absolute Neutrophil 2.8 K/uL (1.8-8.0); Basophils % 2.4 % (0-1.3); Hematocrit 37.1 % (39.6-49.0); Hemoglobin 12.9 g/dL (13.6-17.9); Lymphocytes % 11.2 % (15.3-44.8); MCH 34.2 pg (27.0-35.0); MCHC 34.7 g/dL (32.0-36.0); MCV 98.7 fL (80-100); MPV 8.7 fL (7.6-11.3); Monocytes % 16.2 % (3.3-12.3); Neutrophils % 66.2 % (41.7-73.7); Platelets 221 thou/uL (152-406); RBC Red Blood Cell Count 3.76 M/uL (4.33-5.43); Red Cell Distribution Width 15.1 % (12.1-15.2)
[2024-10-04 07:50] LABS: ALT/SGPT < 14 U/L (16-61); AST/SGOT 21 U/L (15-37); Albumin 2.7 g/dL (3.4-5.0); Albumin/Globulin Ratio 0.8 (1.1-1.8); Alkaline Phosphatase 79 U/L (45-117); BUN Blood Urea Nitrogen 23 mg/dL (7-18); Bicarbonate 29 mEq/L (21-32); Bilirubin Total 0.8 mg/dL (0.2-1.0); Globulin 3.3 g/dL (2.3-3.5); Glomerular Filtration Rate 67 ml/min (=/>90); Glucose Level 90 mg/dL (74-106); Sodium Level 136 mEq/L (136-145)
--- NOTE | 2024-10-04 12:16 | P.PN ---
Subjective Date of Service: 10/04/24 Chief Complaint: NSTEMI, fall The patient is alert, and oriented x 3. No family is present at bedside. The patient is without complaints at this time. He states that he has been ambulating with his rolling walker with PT, and believes this is "helping". Also, the patient states that he spoke with his son regarding discharge planning, and would like to discharged to inpatient rehab. Otherwise, he denies fever, dyspnea, urinary symptoms, and abdominal pain. <Anu Ardon - Last Filed: 10/04/24 13:46> Date of Service: 10/04/24 <Leonel Malik Dereje - Last Filed: 10/08/24 20:31> Review of Systems Unremarkable <Anu Ardon - Last Filed: 10/04/24 13:46> Physical Examination - Vital Signs Temperature: 97.9 F Blood Pressure: 124/77 Pulse: 74 Respirations: 18 Pulse Ox (%): 100 (room air) - Physical Exam General: Alert, Oriented x3 HEENT: Atraumatic, Normocephalic Neck: JVD not distended Respiratory: Normal air movement Cardiovascular: No edema, Regular rate/rhythm, No gallops, No rubs, No murmurs Gastrointestinal: Normal bowel sounds, Non-distended, No tenderness Musculoskeletal: No swelling, No erythema, No tenderness, No warmth Neurological: Normal strength at 5/5 x4 extr (except Left lower extremity 3/5 pain limited), Sensation intact - Studies Medications List Reviewed: Yes <Anu Ardon - Last Filed: 10/04/24 13:46> Assessment And Plan - Plan Left acetabular fracture: Continue to ambulate with rolling walker with PT/OT NSTEMI: cardiology consulted continue with ASA, plavix, and Crestor daily Possible discharge tomorrow to inpatient rehab versus home with home health <Anu Ardon - Last Filed: 10/04/24 13:46> Date of Service: 10/04/24 Patient was seen and examined. Events of the last 24 hours have been noted. Spoke with with MICHAEL regarding patient's clinical picture after evaluating and examining the patient independently. I performed a substantial part of the MDM during this patient's care today. I personally made or approved the documented management plan and acknowledge its risk of complications. I agree with the findings and documentation provided in the MICHAEL's notes. <Leonel Malik - Last Filed: 10/08/24 20:31>
--- NOTE | 2024-10-05 09:24 | P.PN ---
Date of Service: 10/03/24 Subjective Subjective: No new changes, No C/O voiced, Tolerating diet, Ambulating, Improving Physical Examination - Vital Signs reviewed - Physical Exam General: Alert, In no apparent distress Respiratory: Clear to auscultation bilaterally, Normal air movement Cardiovascular: Regular rate/rhythm, Normal S1 S2 Gastrointestinal: Normal bowel sounds, No tenderness Musculoskeletal: No tenderness Integumentary: No rashes Neurological: Normal speech, Normal tone, Normal affect Assessment And Plan - Current Problems (Diagnosis) (1) NSTEMI (non-ST elevated myocardial infarction) Current Visit: Yes Status: Acute Plan: Continue with medical management of mentioned below: ASA 81 mg daily Plavix 75 mg daily Crestor 20 mg daily (2) AICD (automatic cardioverter/defibrillator) present Current Visit: Yes Status: Chronic Plan: outpatient device interrogation. Continue with cardiology follow-up for interrogation (3) Elevated brain natriuretic peptide (BNP) level Current Visit: Yes Status: Acute Plan: Echo shows severe reduced LV systolic function, EF 25%, Continue with diuretics along with carvedilol and lisinopril. monitor input and output. monitor and correct electrolytes.
[2024-10-07] MEDS ORDERED: ROSUVASTATIN 10 MG TAB PO SCH (09:00)
[2024-10-07] MEDS ORDERED: FUROSEMIDE 40 MG TABLET PO SCH (09:00)
[2024-10-07] MEDS ORDERED: HOME MED 1 EA UNK (Levothyroxine Sodium [Levothyroxine Sodium] 100 MCG Capsule) PO SCH (09:00)
[2024-10-07] MEDS: ASPIRIN EC 81 MG TAB PO SCH (10:12)
--- NOTE | 2024-10-08 20:32 | P.PN ---
Date of Service: 10/05/24 Subjective Patient continues to do well. Patient's working well with therapy. Continues to improve. Physical Examination - Vital Signs reviewed - Physical Exam General: Alert, In no apparent distress Respiratory: Clear to auscultation bilaterally, Normal air movement Cardiovascular: Regular rate/rhythm, Normal S1 S2 Gastrointestinal: Normal bowel sounds, No tenderness Musculoskeletal: No tenderness Integumentary: No rashes Neurological: Normal speech, Normal tone, Normal affect Assessment And Plan - Current Problems (Diagnosis) (1) NSTEMI (non-ST elevated myocardial infarction) Current Visit: Yes Status: Acute Plan: -Appreciate cardiology consultation -Continue with antiplatelet therapy and statin therapy (2) Cardiomyopathy with systolic dysfunction Current Visit: Yes Status: Acute Plan: 1. Echocardiogram reviewed with an EF of 25%. 2. Resume cardiac meds 3. Appreciate cardiology consultation 4. Gentle diuresing 5. Strict I's and O's 6. Daily weights 7. Continue with defibrillator interrogation as an outpatient 8. Education regarding diet and treatment of congestive heart failure (3) Acetabular fracture Current Visit: Yes Status: Acute Plan: Appreciate orthopedic consultation; physical therapy evaluation. Rehab appeal pending. If it is denied then patient wants to go to home health
--- NOTE | 2024-10-08 20:38 | P.PN ---
Date of Service: 10/06/24 Subjective Patient continues to do well and patient denies any new complaints. Patient continues to do well. [employer] did not have equipment ready so we will have to wait until Wednesday to discharge Physical Examination - Vital Signs reviewed - Physical Exam General: Alert, In no apparent distress Respiratory: Clear to auscultation bilaterally, Normal air movement Cardiovascular: Regular rate/rhythm, Normal S1 S2 Gastrointestinal: Normal bowel sounds, No tenderness Musculoskeletal: No tenderness Integumentary: No rashes Neurological: Normal speech, Normal tone, Normal affect Assessment And Plan - Current Problems (Diagnosis) (1) NSTEMI (non-ST elevated myocardial infarction) Current Visit: Yes Status: Acute Plan: -Appreciate cardiology consultation -Continue with antiplatelet therapy and statin therapy (2) Cardiomyopathy with systolic dysfunction Current Visit: Yes Status: Acute Plan: 1. Echocardiogram reviewed with an EF of 25%. 2. Resume cardiac meds 3. Appreciate cardiology consultation 4. Gentle diuresing 5. Strict I's and O's 6. Daily weights 7. Continue with defibrillator interrogation as an outpatient 8. Education regarding diet and treatment of congestive heart failure (3) Acetabular fracture Current Visit: Yes Status: Acute Plan: Appreciate orthopedic consultation; physical therapy evaluation. Rehab appeal pending. plan to discharge home with home health once DME is ready
--- NOTE | 2024-10-08 20:39 | P.PN ---
Date of Service: 10/08/24 Subjective Patient's physical strength has improved. Patient able to get out of bed and walk. Continuing with cardiac medications. Discharge planning. Physical Examination - Vital Signs reviewed - Physical Exam General: Alert, In no apparent distress Respiratory: Clear to auscultation bilaterally, Normal air movement Cardiovascular: Regular rate/rhythm, Normal S1 S2 Gastrointestinal: Normal bowel sounds, No tenderness Musculoskeletal: No tenderness Integumentary: No rashes Neurological: Normal speech, Normal tone, Normal affect Assessment And Plan - Current Problems (Diagnosis) (1) NSTEMI (non-ST elevated myocardial infarction) Current Visit: Yes Status: Acute Plan: -Appreciate cardiology consultation -Continue with antiplatelet therapy and statin therapy (2) Cardiomyopathy with systolic dysfunction Current Visit: Yes Status: Acute Plan: 1. Echocardiogram reviewed with an EF of 25%. 2. Resume cardiac meds 3. Appreciate cardiology consultation 4. Gentle diuresing 5. Strict I's and O's 6. Daily weights 7. Continue with defibrillator interrogation as an outpatient 8. Education regarding diet and treatment of congestive heart failure (3) Acetabular fracture Current Visit: Yes Status: Acute Plan: Appreciate orthopedic consultation; physical therapy evaluation. Rehab appeal pending. plan to discharge home with home health once DME is ready
--- NOTE | 2024-10-08 20:39 | P.PN ---
Date of Service: 10/07/24 Subjective Patient doing well no new complaints. Once DME equipment is ready plan to discharge on Wednesday. Physical Examination - Vital Signs reviewed - Physical Exam General: Alert, In no apparent distress Respiratory: Clear to auscultation bilaterally, Normal air movement Cardiovascular: Regular rate/rhythm, Normal S1 S2 Gastrointestinal: Normal bowel sounds, No tenderness Musculoskeletal: No tenderness Integumentary: No rashes Neurological: Normal speech, Normal tone, Normal affect Assessment And Plan - Current Problems (Diagnosis) (1) NSTEMI (non-ST elevated myocardial infarction) Current Visit: Yes Status: Acute Plan: -Appreciate cardiology consultation -Continue with antiplatelet therapy and statin therapy (2) Cardiomyopathy with systolic dysfunction Current Visit: Yes Status: Acute Plan: 1. Echocardiogram reviewed with an EF of 25%. 2. Resume cardiac meds 3. Appreciate cardiology consultation 4. Gentle diuresing 5. Strict I's and O's 6. Daily weights 7. Continue with defibrillator interrogation as an outpatient 8. Education regarding diet and treatment of congestive heart failure (3) Acetabular fracture Current Visit: Yes Status: Acute Plan: Appreciate orthopedic consultation; physical therapy evaluation. Rehab appeal pending. plan to discharge home with home health once DME is ready
[2024-10-09 01:48] VITALS: O2SAT 93
--- NOTE | 2024-10-09 10:27 | P.DS ---
Admission Date: 09/25/24 Discharge Date: 10/09/24 Disposition: ROUTINE DISCHARGE Discharge Condition: GOOD Reason for Admission: NSTEMI, fall Brief History of Present Illness: 84-year-old male with a past medical history of hypertension, hypothyroidism, presents to the emergency room after fall. He reports 3 falls in the last couple days. He reports noncompliance with using rolling walker. He reports recently moved to his son's house. He reported bilateral lower extremity weakness that contributed to his falls. He reported wearing shoes with rubber soles, no reported chest pain, shortness of breath, edema, dizziness. Blood reported on his underwear, HPI is limited due to patient does not remember if he is on anticoagulation. He denied hitting his head, he reports left knee pain, left leg pain, left rib pain. He reports pain is worse with ambulation. Hospital Course: Patient was complaining of persistent left hip pain and markedly limited motion of left hip. Repeat the CT of the hip demonstrated a left hip acetabular fracture. Orthopedic was consulted, physical therapy was started, inpatient rehab recommended but his insurance company denied it. Patient did very well, his left hip pain significantly improved as well as range of motion after physical therapy during hospitalization. Orthopedic recommended no surgical intervention continuous medical treatment. Patient decided against SNF placement. Patient was discharged home with home health for physical therapy. In terms of the heart failure and COPD he was well compensated with minimal symptoms. The plan is to follow-up with orthopedic as outpatient after discharge, pain control with Tylenol 500 mg as needed Discharge diagnosis Mechanical fall Traumatic left acetabular fracture Elevated troponin secondary to cardiac contusion Well compensated heart failure with reduced ejection fraction, ejection fraction 25% by transthoracic echocardiogram With compensated pulmonary emphysema Vital Signs/Physical Exam: Temp Pulse Resp BP Pulse Ox 98.0 F 70 16 136/65 96 10/09/24 04:00 10/09/24 08:51 10/09/24 04:00 10/09/24 08:51 10/09/24 04:00 Other Physical/Emotional Findings: - Physical Exam. General: Not acutely ill looking, in no apparent distress,. HEENT: Normocephalic, atraumatic, nonicteric sclera, nonanemic conjunctive. Neck: Supple, without JVD or goiter or thyroid mass. Respiratory: Normal breathing effort, distant breath sound but clear to auscultation bilaterally, no crackles no wheezing or rhonchi. Cardiovascular: Regular rate and rhythm, S1, S2 normal, no murmur no gallop. Gastrointestinal: Normal bowel sounds, nondistended, nontender, No ascites, , No masses, no hepatosplenomegaly. Extremities l: No clubbing, No peripheral edema, full range of motion, no deformity, no muscle atrophy. Integumentary: No rashes, petechia, suspected lesions. Lymphatics: No axilla or cervical lymphadenopathy. Neurology; alert awake oriented x3, no focal neurologic deficit, normal affection . mood and behavior. Musculoskeletal; full range of motion of left hip, motor and sensory grossly normal Laboratory Data at Discharge: WBC 4.30 thou/uL (4.3-10.9) 10/04/24 07:16 Hgb 12.9 g/dL (13.6-17.9) L 10/04/24 07:16 Hct 37.1 % (39.6-49.0) L 10/04/24 07:16 Plt Count 221 thou/uL (152-406) 10/04/24 07:16 PT 13.3 SECONDS (9.4-12.5) H 09/25/24 13:32 INR 1.19 09/25/24 13:32 APTT 29.5 SECONDS (24.3-36.9) 09/25/24 13:32 Sodium 136 mEq/L (136-145) 10/04/24 07:16 Potassium 4.0 mEq/L (3.5-5.1) 10/04/24 07:16 BUN 23 mg/dL (7-18) H 10/04/24 07:16 Creatinine 1.08 mg/dL (0.70-1.30) 10/04/24 07:16 Glucose 90 mg/dL (74-106) 10/04/24 07:16 Phosphorus 3.3 mg/dL (2.5-4.9) 09/26/24 06:04 Magnesium 2.5 mg/dL (1.6-2.4) H 09/28/24 05:41 Total Bilirubin 0.8 mg/dL (0.2-1.0) 10/04/24 07:16 AST 21 U/L (15-37) 10/04/24 07:16 ALT < 14 U/L (16-61) L 10/04/24 07:16 Alkaline Phosphatase 79 U/L (45-117) 10/04/24 07:16 Triglycerides 49 mg/dL (<150) 09/26/24 06:04 Cholesterol 100 mg/dL (<200) 09/26/24 06:04 HDL Cholesterol 49 mg/dL (40-60) 09/26/24 06:04 Cholesterol/HDL Ratio 2.04 09/26/24 06:04 Home Medications: Furosemide [Lasix] 40 mg PO DAILY 08/06/22 Levothyroxine Sodium 75 mcg PO DAILY 08/06/22 Rosuvastatin [Crestor*] 20 mg PO DAILY 08/06/22 Aspirin [Aspirin EC 81 MG] 162 mg PO DAILY #60 tab 10/06/24 Acetaminophen [Pain Relief] 500 mg PO QID PRN #60 tab 10/09/24 Clopidogrel Bisulfate [Plavix*] 75 mg PO DAILY 10/09/24 Furosemide [Lasix*] 40 mg PO DAILY tab 10/09/24 Levothyroxine [Synthroid*] 0.075 mg PO DAILYAC tab 10/09/24 Rosuvastatin [Crestor*] 20 mg PO BEDTIME tab 10/09/24 carvediloL [Coreg*] 3.125 mg PO BID 6AM 6PM tab 10/09/24 guaiFENesin [Robitussin 100MG/5ML*] 5 ml PO QID PRN #200 ml 10/09/24 New Medications: Aspirin [Aspirin EC 81 MG] 162 mg PO DAILY #60 tab Acetaminophen [Pain Relief] 500 mg PO QID PRN #60 tab PRN Reason: Pain Scale 5-7 (Moderate) guaiFENesin [Robitussin 100MG/5ML*] 5 ml PO QID PRN #200 ml PRN Reason: Cough Physician Discharge Instructions: -DC IV and DC home with HH -Follow-up with PCP in 1 to 2 weeks -Follow-up with orthopedics as directed above -Please call Dr. Malik at [phone] if any questions regarding hospital stay -Please call nursing station at [phone] if any nursing or medication questions -Return to the emergency room if symptoms worsen Diet: AHA Activity: Fall precautions Followup: Ollie Luong MD [ACTIVE - CAN ADMIT] - 1-2 Weeks Karyn Estrella MD [Primary Care Provider] - 1-2 Weeks
[2024-10-09 12:31] VITALS: BP 109/52; TEMP 98.6
--- NOTE | 2024-10-10 12:15 | EKG ---
Test Date: 2024-09-25 Test Time: 12:58:26 Assistant Laboratory Director: MEASUREMENT RESULTS: Intervals: Rate: 116 [place]: 192 QRSD: 166 QT: 382 QTc: 530 [place]: P: [place]: 192 QRS: -64 T: 127 INTERPRETIVE STATEMENTS: Sinus tachycardia with fusion complexes Left axis deviation Right bundle branch block Septal infarct, age undetermined Abnormal ECG Compared to ECG 08/05/2022 13:25:36 Fusion complex(es) now present Right bundle-branch block now present Myocardial infarct finding now present Sinus bradycardia no longer present Ventricular premature complex(es) no longer present First degree AV block no longer present Left bundle-branch block no longer present Electronically Signed On 10-10-24 12:09:07 [employer] SCREEN TENDER by Mio Stubbs
== END 2024-10-09 16:48 | disposition home health service (06) | DRG 280 ==
LOC: ER 12:19 → ERHOLD 15:39 → 4TH 17:51
PROVIDERS: ADMIT Internal Medicine; ATTEND Internal Medicine
DX: I11.0 Hypertensive heart disease with heart failure (principal); I50.23 Acute on chronic systolic (congestive) heart failure; I21.A1 Myocardial infarction type 2; S32.482A Displaced dome fracture of left acetabulum, initial encounter for closed fracture; S32.592A Other specified fracture of left pubis, initial encounter for closed fracture; N17.9 Acute kidney failure, unspecified; I45.10 Unspecified right bundle-branch block; D50.9 Iron deficiency anemia, unspecified; D69.6 Thrombocytopenia, unspecified; E03.9 Hypothyroidism, unspecified; I27.20 Pulmonary hypertension, unspecified; I34.0 Nonrheumatic mitral (valve) insufficiency; I43 Cardiomyopathy in diseases classified elsewhere; J43.9 Emphysema, unspecified; I25.10 Atherosclerotic heart disease of native coronary artery without angina pectoris; R29.6 Repeated falls; Z95.1 Presence of aortocoronary bypass graft; Z91.81 History of falling; Z86.73 Personal history of transient ischemic attack (TIA), and cerebral infarction without residual deficits; Z91.199 Patient's noncompliance with other medical treatment and regimen due to unspecified reason; Z79.82 Long term (current) use of aspirin; Z79.890 Hormone replacement therapy; Z79.899 Other long term (current) drug therapy; Z87.891 Personal history of nicotine dependence; Z95.810 Presence of automatic (implantable) cardiac defibrillator; W19.XXXA Unspecified fall, initial encounter; Y93.9 Activity, unspecified; Y92.9 Unspecified place or not applicable; Y99.9 Unspecified external cause status
CPT/HCPCS: 36415; 70450; 71250; 72125; 73700; 74176; 80048; 80053; 80061; 80076; 81001; 82550; 83735; 83880; 84100; 84439; 84443; 84484; 85025; 85610; 85730; 87086; 87088; 93005; 93306; 94010; 94760; 96360; 96361; 97110; 97116; 97163; 97530; 99285; J1650; J1940; J7030